=== PATIENT | female | born 1955 | race Caucasian/White ===

== ENCOUNTER → 2017-01-27 | Outpatient (REF) | payer BC, OTHER ==
[2017-01-27 11:42] LABS: BASO % 0.2 % (0.0-1.0); EOS # 0.1 K/mm3 (0.0-0.50); EOS % 1.2 % (0.0-3.0); LARGE UNSTAINED CELL # 0.1 K/mm3 (0.0-0.4); LARGE UNSTAINED CELL % 1.3 % (0.0-4.0); LYMPH # 1.5 K/mm3 (1.5-4.5); LYMPH % 19.8 % (24.0-44.0); MEAN CORPUSCULAR HGB CONC 33.4 g/dl (32.0-36.5); MONO # 0.4 K/mm3 (0.0-0.8); MONO % 5.5 % (0.0-5.0); NEUTROPHILS # 5.2 K/mm3 (1.8-7.7); PLATELET COUNT, AUTOMATED 240 k/mm3 (150-450); RED CELL DISTRIBUTION WIDTH 12.9 % (11.5-14.5); WHITE BLOOD COUNT 7.2 K/mm3 (4.0-10.0)
[2017-01-27 12:06] LABS: ALBUMIN 3.9 GM/DL (3.2-5.2); PERCENT SATURATION 25.2 % (13.2-37.4)
== END ==
LOC: M LABDRAWC 11:20
PROVIDERS: ATTEND Orthopaedic Surgery
DX: M25.561 Pain in right knee (principal); M25.562 Pain in left knee

== ENCOUNTER → 2017-02-20 | Outpatient (REF) | payer OTHER, BC ==
[2017-02-20 16:48] LABS: ALBUMIN 3.9 GM/DL (3.2-5.2); ALBUMIN/GLOBULIN RATIO 1.44 (1.00-1.93); ALKALINE PHOSPHATASE 97 U/L (45-117); ALT/SGPT 36 U/L (12-78); ANION GAP 7 MEQ/L (8-16); AST/SGOT 16 U/L (15-37); BILIRUBIN,TOTAL 0.6 MG/DL (0.2-1.0); BLOOD UREA NITROGEN 13 MG/DL (7-18); CALCIUM LEVEL 9.1 MG/DL (8.5-10.1); CARBON DIOXIDE LEVEL 27 MEQ/L (21-32); CHLORIDE LEVEL 108 MEQ/L (98-107); CREATININE FOR GFR 0.65 MG/DL (0.55-1.02); GLOMERULAR FILTRATION RATE > 60.0 (>51); GLUCOSE, FASTING 88 MG/DL (70-105); POTASSIUM SERUM 3.9 MEQ/L (3.5-5.1); SODIUM LEVEL 142 MEQ/L (136-145); TOTAL PROTEIN 6.6 GM/DL (6.4-8.2)
[2017-02-20 17:00] LABS: INR 0.91
[2017-02-20 19:10] LABS: BASO % 0.3 % (0.0-1.0); EOS # 0.1 K/mm3 (0.0-0.50); EOS % 1.6 % (0.0-3.0); LARGE UNSTAINED CELL # 0.1 K/mm3 (0.0-0.4); LARGE UNSTAINED CELL % 1.9 % (0.0-4.0); LYMPH # 1.7 K/mm3 (1.5-4.5); LYMPH % 30.7 % (24.0-44.0); MEAN CORPUSCULAR HEMOGLOBIN 30.2 pg (27.0-33.0); MEAN CORPUSCULAR HGB CONC 33.3 g/dl (32.0-36.5); MEAN CORPUSCULAR VOLUME 90.7 fl (80.0-96.0); MONO # 0.3 K/mm3 (0.0-0.8); MONO % 6.1 % (0.0-5.0); NEUTROPHILS # 3.1 K/mm3 (1.8-7.7); NEUTROPHILS % 59.4 % (36.0-66.0); PLATELET COUNT, AUTOMATED 238 k/mm3 (150-450); WHITE BLOOD COUNT 5.1 K/mm3 (4.0-10.0)
== END ==
LOC: M SFHCCLAY 12:48
PROVIDERS: ATTEND Family Medicine
DX: Z01.818 Encounter for other preprocedural examination (principal)

== ENCOUNTER → 2017-05-09 | Outpatient (REF) | payer OTHER, BC ==
[2017-05-09 19:30] LABS: BASO % 0.3 % (0.0-1.0); EOS # 0.1 K/mm3 (0.0-0.50); EOS % 1.7 % (0.0-3.0); LARGE UNSTAINED CELL # 0.1 K/mm3 (0.0-0.4); LARGE UNSTAINED CELL % 1.2 % (0.0-4.0); LYMPH # 1.4 K/mm3 (1.5-4.5); LYMPH % 23.6 % (24.0-44.0); MEAN CORPUSCULAR HEMOGLOBIN 29.9 pg (27.0-33.0); MEAN CORPUSCULAR HGB CONC 32.7 g/dl (32.0-36.5); MEAN CORPUSCULAR VOLUME 91.5 fl (80.0-96.0); MONO # 0.4 K/mm3 (0.0-0.8); MONO % 6.5 % (0.0-5.0); NEUTROPHILS # 3.8 K/mm3 (1.8-7.7); NEUTROPHILS % 66.7 % (36.0-66.0); PLATELET COUNT, AUTOMATED 274 k/mm3 (150-450); WHITE BLOOD COUNT 5.7 K/mm3 (4.0-10.0)
== END ==
LOC: M SFHCCLAY 10:36
PROVIDERS: ATTEND Family Medicine
DX: M25.561 Pain in right knee (principal)

== ENCOUNTER → 2018-01-23 | Outpatient (CLI) | payer OTHER, BC | LOC: M RAD 19:42 | DX: M25.531 Pain in right wrist (principal); W64.XXXA Exposure to other animate mechanical forces, initial encounter | CPT/HCPCS: 73110 ==

== ENCOUNTER → 2018-02-13 | Outpatient (CLI) | payer OTHER, BC | LOC: M RAD 16:05 | DX: H81.91 Unspecified disorder of vestibular function, right ear (principal) | CPT/HCPCS: 70551 ==

== ENCOUNTER → 2020-09-07 | Outpatient (CLI) | payer SELFPAY | LOC: M LABSMTC 14:18 | PROVIDERS: ATTEND Pediatrics | DX: Z20.828 Contact with and (suspected) exposure to other viral communicable diseases (principal) ==

== ENCOUNTER 2021-08-23 22:54 | Observation (INO) | payer BC, SELFPAY ==
[~2021-08-23] VITALS: Ht 170.2 cm; Wt 117.0 kg
[2021-08-23] MEDS ORDERED: LOSA50TA88 PO (22:59)
--- OUTSIDE RECORDS SUMMARY | 2021-08-23 22:59 | CCD ---
Author Author [facility] Organization [facility] Address Unknown Phone Unavailable Care Team Providers Care Contracts Specialist Name Role Phone Gege Garrido CHIEF INVESTMENT OFFICER Unavailable Unavailable Garrido Gege CHIEF INVESTMENT OFFICER Unavailable Unavailable Garrido Gege CHIEF INVESTMENT OFFICER Unavailable Unavailable Garrido, Gege CHIEF INVESTMENT OFFICER Unavailable Unavailable Garrido, Gege CHIEF INVESTMENT OFFICER Unavailable Unavailable Garrido, Gege CHIEF INVESTMENT OFFICER Unavailable Unavailable Garrido, Gege CHIEF INVESTMENT OFFICER Unavailable Unavailable Garrido, Gege CHIEF INVESTMENT OFFICER Unavailable Unavailable Garrido, Gege CHIEF INVESTMENT OFFICER Unavailable Unavailable Garrido, Gege CHIEF INVESTMENT OFFICER Unavailable Unavailable Garrido, Gege CHIEF INVESTMENT OFFICER Unavailable Unavailable Garrido, Gege CHIEF INVESTMENT OFFICER Unavailable Unavailable Garrido, Gege CHIEF INVESTMENT OFFICER Unavailable Unavailable KAREN, J KEY DO Unavailable Unavailable KAREN, J KEY DO Unavailable Unavailable KAREN, J KEY DO Unavailable Unavailable KAREN, J KEY DO Unavailable Unavailable KAREN, J KEY DO Unavailable Unavailable KAREN, J KEY DO Unavailable Unavailable KAREN, J KEY DO Unavailable Unavailable KAREN, J KEY DO Unavailable Unavailable KAREN, J KEY DO Unavailable Unavailable KAREN, J KEY DO Unavailable Unavailable KAREN, J KEY DO Unavailable Unavailable KAREN, J KEY DO Unavailable Unavailable KAREN, J KEY DO Unavailable Unavailable KAREN, J KEY DO Unavailable Unavailable KAREN, J KEY DO Unavailable Unavailable KAREN, J KEY DO Unavailable Unavailable KAREN, J KEY DO Unavailable Unavailable KAREN, J KEY DO Unavailable Unavailable KAREN, J KEY DO Unavailable Unavailable KRAEN, J KEY DO Unavailable Unavailable KAREN, J KEY DO Unavailable Unavailable KAREN, J KEY DO Unavailable Unavailable KAREN, J KEY DO Unavailable Unavailable KAREN, J KEY DO Unavailable Unavailable KAREN, J KEY DO Unavailable Unavailable KAREN, J KEY DO Unavailable Unavailable KAREN, J KEY DO Unavailable Unavailable Shelia Parrish MD Unavailable Unavailable Shelia Parrish MD Unavailable Unavailable Shelia Parrish MD Unavailable Unavailable Shelia Parrish MD Unavailable Unavailable Shelia Parrish MD Unavailable Unavailable Shelia Parrish MD Unavailable Unavailable Shelia Parrish MD Unavailable Unavailable Shelia Parrish MD Unavailable Unavailable Shelia Parrish MD Unavailable Unavailable Shelia Parrish MD Unavailable Unavailable Shelia Parrish MD Unavailable Unavailable Shelia Parrish MD Unavailable Unavailable Shelia Parrish MD Unavailable Unavailable Shelia Parrish MD Unavailable Unavailable Shelia Parrish MD Unavailable Unavailable Shelia Parrish MD Unavailable Unavailable Shelia Parrish MD Unavailable Unavailable Shelia Parrish MD Unavailable Unavailable Shelia Parrish MD Unavailable Unavailable Shelia Parrish MD Unavailable Unavailable Shelia Parrish MD Unavailable Unavailable Shelia Parrish MD Unavailable Unavailable Shelia Parrish MD Unavailable Unavailable Shelia Parrish MD Unavailable Unavailable Shelia Parrish MD Unavailable Unavailable Shelia Parrish MD Unavailable Unavailable Shelia Parrish MD Unavailable Unavailable Shelia Parrish MD Unavailable Unavailable Shelia Parrish MD Unavailable Unavailable Shelia Parrish MD Unavailable Unavailable Shelia Parrish MD Unavailable Unavailable Shelia Parrish MD Unavailable Unavailable Shelia Parrish MD Unavailable Unavailable Shelia Parrish MD Unavailable Unavailable Shelia Parrish MD Unavailable Unavailable Shelia Parrish MD Unavailable Unavailable Shelia Parrish MD Unavailable Unavailable Shelia Parrish MD Unavailable Unavailable Shelia Parrish MD Unavailable Unavailable Shelia Parrish MD Unavailable Unavailable Shelia Parrish MD Unavailable Unavailable Shelia Parrish MD Unavailable Unavailable Shelia Parrish MD Unavailable Unavailable Shelia Parrish MD Unavailable Unavailable Shelia Parrish MD Unavailable Unavailable Shelia Parrish MD Unavailable Unavailable Shelia Parrish MD Unavailable Unavailable Shelia Parrish MD Unavailable Unavailable Shelia Parrish MD Unavailable Unavailable Shelia Parrish MD Unavailable Unavailable Shelia Parrish MD Unavailable Unavailable Shelia Parrish MD Unavailable Unavailable Shelia Parrish MD Unavailable Unavailable Shelia Parrish MD Unavailable Unavailable Shelia Parrish MD Unavailable Unavailable Shelia Parrish MD Unavailable Unavailable Shelia Parrish MD Unavailable Unavailable Shelia Parrish MD Unavailable Unavailable SYMENOW, G CHRISTOPHER PA Unavailable Unavailable SYMENOW, G CHRISTOPHER PA Unavailable Unavailable SYMENOW, G CHRISTOPHER PA Unavailable Unavailable SYMENOW, G CHRISTOPHER PA Unavailable Unavailable SYMENOW, G CHRISTOPHER PA Unavailable Unavailable SYMENOW, G CHRISTOPHER PA Unavailable Unavailable SYMENOW, G CHRISTOPHER PA Unavailable Unavailable SYMENOW, G CHRISTOPHER PA Unavailable Unavailable SYMENOW, G CHRISTOPHER PA Unavailable Unavailable SYMENOW, G CHRISTOPHER PA Unavailable Unavailable SYMENOW, G CHRISTOPHER PA Unavailable Unavailable SYMENOW, G CHRISTOPHER PA Unavailable Unavailable SYMENOW, G CHRISTOPHER PA Unavailable Unavailable SYMENOW, G CHRISTOPHER PA Unavailable Unavailable SYMENOW, G CHRISTOPHER PA Unavailable Unavailable SYMENOW, G CHRISTOPHER PA Unavailable Unavailable Robert Koroma, Jared Cuevas MD, FACS Unavailable Unavailable Robert Koroma, Jared Cuevas MD, FACS Unavailable Unavailable Robert Koroma, Jared Cuevas MD, FACS Unavailable Unavailable Jared Mcallister MD, FACS Unavailable Unavailable Jared Mcallister MD, FACS Unavailable Unavailable Jared Mcallister MD, FACS Unavailable Unavailable Jared Mcallister MD, FACS Unavailable Unavailable Jared Mcallister MD, FACS Unavailable Unavailable Jared Mcallister MD, FACS Unavailable Unavailable Jared Mcallister MD, FACS Unavailable Unavailable Jared Mcallister MD, FACS Unavailable Unavailable Jared Mcallister MD, FACS Unavailable Unavailable Jared Mcallister MD, FACS Unavailable Unavailable Jared Mcallister MD, FACS Unavailable Unavailable Jared Mcallister MD, FACS Unavailable Unavailable Jared Mcallister MD, FACS Unavailable Unavailable Jared Mcallister MD, FACS Unavailable Unavailable Jones Koroma, Jared Cuevas MD, FACS Unavailable Unavailable Ojnes Koroma, Jared Cuevas MD, FACS Unavailable Unavailable Jones Koroma, Jared Cuevas MD, FACS Unavailable Unavailable Jones Koroma, Jared Cuevas MD, FACS Unavailable Unavailable Jones Koroma, Jared Cuevas MD, FACS Unavailable Unavailable Jones Koroma, Jared Cuevas MD, FACS Unavailable Unavailable Jones Koroma, Jared Cuevas MD, FACS Unavailable Unavailable Jones Koroma, Jared Cuevas MD, FACS Unavailable Unavailable Jones Koroma, Jared Cuevas MD, FACS Unavailable Unavailable Jones Koroma, Jared Cuevas MD, FACS Unavailable Unavailable Jones Koroma, Jared Cuevas MD, FACS Unavailable Unavailable Jones Koroma, Jared Cuevas MD, FACS Unavailable Unavailable Jones Koroma, Jared Cuevas MD, FACS Unavailable Unavailable Jones Koroma, Jared Cuevas MD, FACS Unavailable Unavailable Jones Koroma, Jared Cuevas MD, FACS Unavailable Unavailable Jones Koroma, Jared Cuevas MD, FACS Unavailable Unavailable Jones Koroma, Jared Cuevas MD, FACS Unavailable Unavailable Jones Koroma, Jared Cuevas MD, FACS Unavailable Unavailable Jones Koroma, Jared Cuevas MD, FACS Unavailable Unavailable Jones Koroma, Jared Cuevas MD, FACS Unavailable Unavailable Jones Koroma, Jared Cuevas MD, FACS Unavailable Unavailable Jones Koroma, Jared Cuevas MD, FACS Unavailable Unavailable Braydon, M Amparo PA-C Unavailable Unavailable Braydon, M Amparo PA-C Unavailable Unavailable Braydon, M Amparo PA-C Unavailable Unavailable Braydon, M Amparo PA-C Unavailable Unavailable Braydon, M Amparo PA-C Unavailable Unavailable Braydon, M Amparo PA-C Unavailable Unavailable Braydon, M Amparo PA-C Unavailable Unavailable Braydon, M Amparo PA-C Unavailable Unavailable Braydon, M Amparo PA-C Unavailable Unavailable Braydon, M Amparo PA-C Unavailable Unavailable Braydon, M Amparo PA-C Unavailable Unavailable Braydon, M Amparo PA-C Unavailable Unavailable Braydon, M Amparo PA-C Unavailable Unavailable Braydon, M Amparo PA-C Unavailable Unavailable Braydon, M Amparo PA-C Unavailable Unavailable Braydon, M Amparo PA-C Unavailable Unavailable Braydon, M Amparo PA-C Unavailable Unavailable Braydon, M Amparo PA-C Unavailable Unavailable Braydon, M Amparo PA-C Unavailable Unavailable Braydon, M Amparo PA-C Unavailable Unavailable Braydon, M Amparo PA-C Unavailable Unavailable Braydon, M Amparo PA-C Unavailable Unavailable Braydon, M Amparo PA-C Unavailable Unavailable Braydon, M Amparo PA-C Unavailable Unavailable Braydon, M Amparo PA-C Unavailable Unavailable Braydon, M Amparo PA-C Unavailable Unavailable Braydon, M Amparo PA-C Unavailable Unavailable Braydon, M Amparo PA-C Unavailable Unavailable Braydon, M Amparo PA-C Unavailable Unavailable Braydon, M Amparo PA-C Unavailable Unavailable Braydon, M Amparo PA-C Unavailable Unavailable Braydon, M Amparo PA-C Unavailable Unavailable Braydon, M Amparo PA-C Unavailable Unavailable Braydon, M Amparo PA-C Unavailable Unavailable Braydon, M Amparo PA-C Unavailable Unavailable Braydon, M Amparo PA-C Unavailable Unavailable Braydon, M Amparo PA-C Unavailable Unavailable Braydon, M Amparo PA-C Unavailable Unavailable ROA, ARACELIS Unavailable Unavailable ROA, ARACELIS Unavailable Unavailable ROA, ARACELIS Unavailable Unavailable ROA, ARACELIS Unavailable Unavailable ROA, ARACELIS Unavailable Unavailable ROA, ARACELIS Unavailable Unavailable DANYA, L TEAGAN PA Unavailable Unavailable DANYA, L TEAGAN PA Unavailable Unavailable DANYA, L TEAGAN PA Unavailable Unavailable DANYA, L TEAGAN PA Unavailable Unavailable DANYA, L TEAGAN PA Unavailable Unavailable DANYA, L TEAGAN PA Unavailable Unavailable DANYA, L TEAGAN PA Unavailable Unavailable DANYA, L TEAGAN PA Unavailable Unavailable DANYA, L TEAGAN PA Unavailable Unavailable DANYA, L TEAGAN PA Unavailable Unavailable DANYA, L TEAGAN PA Unavailable Unavailable DANYA, L TEAGAN PA Unavailable Unavailable DANYA, L TEAGAN PA Unavailable Unavailable DANYA, L TEAGAN PA Unavailable Unavailable DANYA, L TEAGAN PA Unavailable Unavailable DANYA, L TEAGAN PA Unavailable Unavailable DANYA, L TEAGAN PA Unavailable Unavailable DANYA, L TEAGAN PA Unavailable Unavailable DANYA, L TEAGAN PA Unavailable Unavailable DANYA, L TEAGAN PA Unavailable Unavailable DANYA, L TEAGAN PA Unavailable Unavailable DANYA, L TEAGAN PA Unavailable Unavailable DANYA, L TEAGAN PA Unavailable Unavailable Denisa VEGA MD Unavailable Unavailable Denisa VEGA MD Unavailable Unavailable Denisa VEGA MD Unavailable Unavailable Denisa VEGA MD Unavailable Unavailable Denisa VEGA MD Unavailable Unavailable Denisa VEGA MD Unavailable Unavailable Denisa EVGA MD Unavailable Unavailable Denisa VEGA MD Unavailable Unavailable Denisa VEGA MD Unavailable Unavailable Denisa VEGA MD Unavailable Unavailable Denisa VEGA MD Unavailable Unavailable Denisa VEGA MD Unavailable Unavailable Denisa VEGA MD Unavailable Unavailable SILVIADenisa MD Unavailable Unavailable SILVIADenisa MD Unavailable Unavailable SILVIA S DINH HANSON Unavailable Unavailable SILVIADenisa MD Unavailable Unavailable SILVIADenisa MD Unavailable Unavailable SILVIADenisa MD Unavailable Unavailable SILVIADenisa MD Unavailable Unavailable SILVIA S DINH HANSON Unavailable Unavailable SILVIADenisa MD Unavailable Unavailable SILVIA S DINH HANSON Unavailable Unavailable SILVIADenisa MD Unavailable Unavailable SILVIADenisa FARMER MD Unavailable Unavailable SILVIADenisa FARMER MD Unavailable Unavailable SILVIADenisa FARMER MD Unavailable Unavailable SILVIA S DINH HANSON Unavailable Unavailable SILVIADenisa FARMER MD Unavailable Unavailable SILVIADenisa FARMER MD Unavailable Unavailable SILVIADenisa FARMER MD Unavailable Unavailable SILVIADenisa FARMER MD Unavailable Unavailable SILVIADenisa FARMER MD Unavailable Unavailable SILVIADenisa FARMER MD Unavailable Unavailable SILVIADenisa FARMER MD Unavailable Unavailable SILVIADenisa FARMER MD Unavailable Unavailable SILVIADenisa FARMER MD Unavailable Unavailable SILVIADenisa FARMER MD Unavailable Unavailable SILVIADenisa FARMER MD Unavailable Unavailable SILVIADenisa FARMER MD Unavailable Unavailable SILVIADenisa FARMER MD Unavailable Unavailable SILVIADenisa FARMER MD Unavailable Unavailable SILVIADenisa FARMER MD Unavailable Unavailable SILVIADenisa FARMER MD Unavailable Unavailable SILVIADenisa FARMER MD Unavailable Unavailable SILVIADenisa FARMER MD Unavailable Unavailable SILVIADenisa FARMER MD Unavailable Unavailable SILVIADenisa FARMER MD Unavailable Unavailable SILVIADenisa FARMER MD Unavailable Unavailable SILVIADenisa FARMER MD Unavailable Unavailable SILVIADenisa FARMER MD Unavailable Unavailable SILVIADenisa FARMER MD Unavailable Unavailable SILVIADenisa FARMER MD Unavailable Unavailable SILVIADenisa FARMER MD Unavailable Unavailable SILVIA, S DINH HANSON Unavailable Unavailable SILIVA S DINH HANSON Unavailable Unavailable SILVIA, S DINH HANSON Unavailable Unavailable SILVIA S DINH HANSON Unavailable Unavailable SILVIA, S DINH HANSON Unavailable Unavailable SILVIA, S DINH HANSON Unavailable Unavailable SILVIADenisa FARMER MD Unavailable Unavailable SILVIADenisa FARMER MD Unavailable Unavailable SILVIA S DINH HANSON Unavailable Unavailable SILVIADenisa MD Unavailable Unavailable SILVIA S DINH HANSON Unavailable Unavailable LULI RAMIRES Unavailable Unavailable LULI RAMIRES Unavailable Unavailable KEYLA, LULI CYNTHIA PA Unavailable Unavailable KEYLA, LULI CYNTHIA PA Unavailable Unavailable KEYLA, LULI CYNTHIA PA Unavailable Unavailable KEYLA, LULI CYNTHIA PA Unavailable Unavailable KEYLA, LULI CYNTHIA PA Unavailable Unavailable KEYLA, LULI CYNTHIA PA Unavailable Unavailable KEYLA, LULI CYNTHIA PA Unavailable Unavailable KEYLA, LULI CYNTHIA PA Unavailable Unavailable KEYLA, LULI CYNTHIA PA Unavailable Unavailable KEYLA, LULI CYNTHIA PA Unavailable Unavailable KEYLA, LULI CYNTHIA PA Unavailable Unavailable KEYLA, LULI CYNTHIA PA Unavailable Unavailable KEYLA, LULI CYNTHIA PA Unavailable Unavailable KEYLA, LULI CYNTHIA PA Unavailable Unavailable KEYLA, LULI CYNTHIA PA Unavailable Unavailable KEYLA, LULI CYNTHIA PA Unavailable Unavailable KEYLA, LULI CYNTHIA PA Unavailable Unavailable KEYLA, LULI CYNTHIA PA Unavailable Unavailable KEYAL, LULI CYNTHIA PA Unavailable Unavailable KEYLA, LULI CYNTHIA PA Unavailable Unavailable Re-disclosure Warning The records that you are about to access may contain information from federally-assisted alcohol or drug abuse programs. If such information is present, then the following federally mandated warning applies: This information has been disclosed to you from records protected by federal confidentiality rules (42 CFR part 2). The federal rules prohibit you from making any further disclosure of this information unless further disclosure is expressly permitted by the written consent of the person to whom it pertains or as otherwise permitted by 42 CFR part 2. A general authorization for the release of medical or other information is NOT sufficient for this purpose. The Federal rules restrict any use of the information to criminally investigate or prosecute any alcohol or drug abuse patient.The records that you are about to access may contain highly sensitive health information, the redisclosure of which is protected by Article 27-F of the [facility] Public Health law. If you continue you may have access to information: Regarding HIV / AIDS; Provided by facilities licensed or operated by the [facility] Office of Mental Health; or Provided by the [facility] Office for People With Developmental Disabilities. If such information is present, then the following [facility] mandated warning applies: This information has been disclosed to you from confidential records which are protected by state law. State law prohibits you from making any further disclosure of this information without the specific written consent of the person to whom it pertains, or as otherwise permitted by law. Any unauthorized further disclosure in violation of state law may result in a fine or halfway sentence or both. A general authorization for the release of medical or other information is NOT sufficient authorization for further disc losure. Family History Family Member Name Family Member Gender Family Member Status Date o f Status Description Data Source(s) Unknown Unknown Problem [facility] ([facility], ) Encounters Encounter Providers Location Date Indications Data Source(s ) Outpatient [facility] 07/15/2021 12:00:00 AM EDT eCW1 ([facility]) <td ID="encounterTypeDescriptionID0">TRI AGE NON URGENT LEVEL 1</td><td>Mason Garcia MD, FACS</td><td>Mason Garcia MD [facility]</td><td>12/17/2020</td><td>8:00AM</td><td>8:27AM</td><td><content ID="encounterDiagnosisID0-0">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</content></td>Outpatient Attender: Mason Koroma MD, FACS Mason Garcia MD [facility] 12/17/2020 08:00:00 AM EDT - 12/17/2020 08:27:00 AM EDT Migraine Headache Ophthalmoplegic Withou t Intractable Migraine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 [place] (Mason Koroma MD [facility]) Migraine Headache Ophthalmoplegic Withou t Intractable Migraine Migraine Headache Ophthalmoplegic Withou t Intractable [facility] 10/01/2020 12: 00:00 AM EST eCW1 ([facility]) Outpatient Attender: Gege kilgore 09/03/2020 02:35:00 PM EST [facility] ([facility], [facility]) Outpatient Attender: Gege kilgore 08/09/2020 09:10:00 AM EST [facility] ([facility]) Outpatient [facility] 08/06/2020 12:00:00 AM EST eCW1 ([facility]) Outpatient [address] [place] [address] 07/15/2020 12:00:00 AM EDT eCW1 ([facility]) Outpatient [facility] 07/15/2020 12:00:00 AM EDT eCW1 ([facility]) Outpatient Attender: Amparo Bryson PA-C 06/25/2020 02:30 :00 PM EDT [facility] Outpatient [facility] 06/25/2020 12:00:00 AM EDT eCW1 ([facility]) Outpatient Attender: DINH VEGA MDReferrer: [facility] 04/23/2020 03:30:00 PM EDT - 04/23/2020 03:30:00 PM [facility] Emergency Attender: TEAGAN MCCARTNEY 11/2019 03:35:00 PM EDT - 01/19/2020 05:05:00 PM T [facility] Patient discharged. Outpatient Attender: Sridhar Parrish MD 11/01/2019 09:00:00 [facility] Outpatient Attender: KEY JONES DO 10/18/2019 11:00:00 [facility] Outpatient Attender: KEY JONES DO 10/17/2019 03:00:00 [facility] Outpatient Attender: KEY JONES DO 2019 03:00:00 PM [facility] - 10/15/2019 03:00:00 PM [facility] Emergency Attender: JOSIANE MCCARTNEY 10/29/2018 01:53:00 PM [facility] - 10/29/2018 03:06:00 PM [facility] Emergency Attender: CYNTHIA MCCARTNEY EMERGENCY ROOM-ER 11/24/2014 10:40:00 PM EDT - 11/25/2014 12:14:00 AM [facility] Immunizations Vaccine Date Status Description Data Source(s) COVID-19 VACCINE Pfizer 12/09/2020 12:00:00 AM EDT completed [facility] Vaccine Series Complete: YESThis Data wa s Submitted to [facility] Via [employer]. COVID-19 VACCINE Pfizer 11/18/2020 12:00:00 AM EST completed [facility] Vaccine Series Complete: NOThis Data was Submitted to [facility] Via [employer]. Medications Medication Brand Name Start Date Product Form Dose Route Admi nistrative Instructions Pharmacy Instructions Status Indications Reaction Description Data Source(s) 50 mg 06/01/2021 12:00:00 AM EDT tablet 30 TAKE ONE TABLET BY MOUTH AT BEDTIME TAKE ONE TABLET BY MOUTH AT BEDTIME SOLD: 07/01/2021 [facility] 50 mg 06/01/2021 12:00:00 AM EDT tablet 30 TAKE ONE TABLET BY MOUTH AT BEDTIME TAKE ONE TABLET BY MOUTH AT BEDTIME SOLD: 06/01/2021 [facility] 50 mg 06/01/2021 12:00:00 AM EDT tablet 30 TAKE ONE TABLET BY MOUTH AT BEDTIME TAKE ONE TABLET BY MOUTH AT BEDTIME SOLD: 08/13/2021 [facility] Clindamycin 300 MG Oral Capsule CLINDAMYCIN HCL 02/23/2021 12:00 :00 AM EDT capsule 2 TAKE TWO CAPSULES BY MOUTH 1 BELKIS R PRIOR TO DENTAL PROCEDURE TAKE TWO CAPSULES BY MOUTH 1 HOUR PRIOR TO DENTAL PROCEDURE SOLD: 05/26/2021 [facility] Clindamycin 300 MG Oral Capsule CLINDAMYCIN HCL 02/23/2021 12:00 :00 AM EDT capsule 2 TAKE TWO CAPSULES BY MOUTH 1 BELKIS R PRIOR TO DENTAL PROCEDURE TAKE TWO CAPSULES BY MOUTH 1 HOUR PRIOR TO DENTAL PROCEDURE SOLD: 02/23/2021 [facility] Clindamycin 300 MG Oral Capsule CLINDAMYCIN HCL 02/18/2021 12:00 :00 AM EDT capsule 2 TAKE 2 CAPSULES BY MOUTH 1 HOUR BEFORE PROCEDURE X 1 DOSE TAKE 2 CAPSULES BY MOUTH 1 HOUR BEFORE PROCEDURE X 1 DOSE SOLD: 02/22/2021 [facility] Clindamycin 300 MG Oral Capsule CLINDAMYCIN HCL 02/18/2021 12:00 :00 AM EDT capsule 2 TAKE 2 CAPSULES BY MOUTH 1 HOUR BEFORE PROCEDURE X 1 DOSE TAKE 2 CAPSULES BY MOUTH 1 HOUR BEFORE PROCEDURE X 1 DOSE SOLD: 02/18/2021 [facility] 300 mg 10/27/2020 12:00:00 AM EST capsule 2 TAKE TWO CAPSULES BY MOUTH 1 HOUR PRIOR TO DENTAL PROCEDURE TAKE TWO CAPSULES BY MOUTH 1 HOUR PRIOR TO DENTAL PROCEDURE SOLD: 10/27/2020 [facility] 300 mg 10/27/2020 12:00:00 AM EST capsule 15 TAKE ONE CAPSULE BY MOUTH THREE TIMES A DAY FOR 5 DAYS TAKE ONE CAPSULE BY MOUTH THREE TIMES A DAY FOR 5 DAYS SOLD: 10/27/2020 [facility] Prednisone 20 MG Oral Tablet Prednisone 09/03/2020 12:00:00 AM EST active [facility] ([facility]) Doxycycline Monohydrate 100 MG Oral Capsule Doxycycline [place] hydrate 08/09/2020 12:00:00 AM EST ORAL completed [facility] ([facility]) 60 ACTUAT Albuterol 0.09 MG/ACTUAT Metered Dose Inhaler [place] Sulfate HFA 08/09/2020 12:00:00 AM EST RESPIRATORY completed [facility] ([facility]) Prednisone 20 MG Oral Tablet Prednisone 08/09/2020 12:00:00 AM EST completed [facility] ([facility]) risedronate sodium 35 MG Oral Tablet Risedronate Sodium 12:00:00 AM EDT active [facility] ([facility]) 35 mg 06/26/2020 12:00:00 AM EDT tablet 4 TAKE 1 TABLET BY MOUTH AT LEAST 30 MINUTES BEFORE THE FIRST FOOD OR DRINK, OTHER THAN WATER, OF THE DAY ONCE WEEKLY TAKE 1 TABLET BY MOUTH AT LEAST 30 MINUT ES BEFORE THE FIRST FOOD OR DRINK, OTHER THAN WATER, OF THE DAY ONCE WEEKLY SOLD: 06/30/2020 [facility] Doxycycline Monohydrate 100 MG Oral Capsule Doxycycline [place] hydrate 100 MG 06/25/2020 12:00:00 AM EDT 1.0 {capsule} active Doxycycline Monohydrate 100 MG eCW1 ([facility]) Doxycycline Monohydrate 100 MG Oral Capsule Doxycycline [place] hydrate 100 MG 06/25/2020 12:00:00 AM EDT 1.0 {capsule} active Doxycycline Monohydrate 100 MG eCW1 ([facility]) Doxycycline Monohydrate 100 MG Oral Capsule Doxycycline [place] hydrate 100 MG 06/25/2020 12:00:00 AM EDT 1.0 {capsule} active Doxycycline Monohydrate 100 MG eCW1 ([facility]) Doxycycline Monohydrate 100 MG Oral Capsule Doxycycline [place] hydrate 100 MG 06/25/2020 12:00:00 AM EDT 1.0 {capsule} active Doxycycline Monohydrate 100 MG eCW1 ([facility]) 50 mg 05/11/2020 12:00:00 AM EDT tablet 90 TAKE ONE TABLET BY MOUTH AT BEDTIME TAKE ONE TABLET BY MOUTH AT BEDTIME SOLD: 08/19/2020 [facility] 50 mg 05/11/2020 12:00:00 AM EDT tablet 90 TAKE ONE TABLET BY MOUTH AT BEDTIME TAKE ONE TABLET BY MOUTH AT BEDTIME SOLD: 02/18/2021 [facility] 50 mg 05/11/2020 12:00:00 AM EDT tablet 90 TAKE ONE TABLET BY MOUTH AT BEDTIME TAKE ONE TABLET BY MOUTH AT BEDTIME SOLD: 11/21/2020 [facility] Insurance Providers Payer name Policy type / Coverage type Policy ID Covered libertarian ID Covered libertarian's relationship to clemons Policy Clemons Plan Information EXCELLUS BCBS [id number] Spo GHP [id number] BCBS OD [place] 210/710 [id number] HU2 [id number] BCBS of [facility] Other 0 [id number] Family D ependent Thom Brittany 0 BCBS of [facility] Other 0 [id number] Family D ependent Thom Brittany 0 Excell[employer] BCBS Medigap Part B [id number] Family Dependent [id number] EXCELLUS H [id number] Spouse [id number] POMCO U [id number] Self [id number] Blue Cross Blue Shield P [id number] SPOUSE [id number] POMCO U [id number] Self [id number] POMCO [id number] Karen [id number] [employer] Health Maintenance Organization (HMO) [id number] Self [id number] POMCO [id number] SP [id number] [employer] Maintenance Organization (HMO) [id number] Self [id number] POMCO [id number] Karen [id number] [employer] / UMR F [id number] SELF [id number] [employer] F [id number] SELF [id number] [employer] F [id number] SELF [id number] [employer] F [id number] SELF [id number] Blue Cross Blue Shield P [id number] SPOUSE [id number] BCBS OD [place] 210/710 [id number] HU2 [id number] UMR F [id number] SELF [id number] BCBS EXCELLUS [id number] SPO UGD [id number] BCBS EXCELLUS [id number] SPO GHP [id number] BCBS EXCELLUS [id number] SPO UGD [id number] BCBS EXCELLUS [id number] SPO UGD [id number] BCBS OD [place] 210/710 [id number] HU2 [id number] BCBS EXCELLUS [id number] SPO GHP [id number] [employer] PHCS Ppo Commercial [id number] Self [id number] POMCO [id number] SP [id number] BCBS [facility] [id number] Family Dependent G [id number] [employer] Commercial [id number] Self BCBS Excellus Ppo U/W Commercial [id number] Family Dependent BC/BS [place] Commercial [id number] Family Dependent BC/BS Of [place] Medigap Part [id number] Family Dep endent [place] Commercial [id number] Self BCBS OF [place] BC [id number] SPO [id number] BCBS EXCELLUS [id number] SPO UGD [id number] BCBS of [facility] Other 0 [id number] Self 0 BCBS of [facility] Other 0 [id number] Self [id number] BCBS EXCELLUS [id number] SPO GHP [id number] SELF PAY UNAVAILABLE S UNAVAILA BLE BCBS Excell[employer] U/W Commercial [id number] Family Dependent [id number] R O [id number] S [id number] EXCELLUS BCBS B [id number] S GHP [id number] SELF PAY ONLY [id number] SP [id number] R [facility] [id number] SP [id number] EXCELLUS BCBS PI PI [place]OM[place] PI PI [id number] BCBS EX[place]LLUS [id number] SPO [place]NER [id number] POMCO [id number] SP [id number] Problems, Conditions, and Diagnoses Code Display Name Description Problem Type Effective Dates Data Source(s) M85.80 Other specified disorders of bone density and structure, unspecified site OTH DISRD OF BONE DENSITY AND STRUCTURE, UNSPECIFI Diagnosis 06/25/2020 02:30:00 PM [facility] J01.00 Acute maxillary sinusitis, unspecified A CUTE MAXILLARY SINUSITIS, UNSPECIFIED Diagnosis 06/25/2020 02:30:00 PM [facility] [id number] Body mass index 30+ - obesity Body mass index 30+ - ob esity Problem 07/13/2020 12:00:00 AM EDT MEDENT ([facility]) Surgeries/Procedures Procedure Description Date Indications Data Source(s) Intermediate Eye Exam Established Patient Intermediate Eye Exam Established Patient 12/17/2020 12:00:00 AM EDT PRASHANTH (Willy Koroma MD [facility]) Surgical / procedural history : Hysterec alicia- 1992, Appendectomy- 2004, Basal Cell Removed, right side of face 01/2019 Surgical / procedural history : Hysterectomy- 1992, Appendectomy- 2005, Basal Cell Removed, right side of face 01/201912/17/2020 12:00:00 AM EDT PRASHANTH (Willy Koroma MD [facility]) Intermediate Eye Exam Established Patient Intermediate Eye Exam Established Patient 12/17/2020 12:00:00 AM EDT PRASHANTH (Willy Koroma MD [facility]) Results ID Date Data Source [id number] 09/07/2020 12:00:00 AM EST [facility] Name Value Range Interpretation Code Description Data Ariella rce(s) Supporting Document(s) SARS-CoV-2 (COVID-19) RNA [Presence] in Respiratory specimen by RACHEL with probe detection [facility] This lab was ordered by [facility] and reported by [facility]. ID Date Data Source [id number] 09/03/2020 12:00:00 AM EST [facility] Name Value Range Interpretation Code Description Data Ariella rce(s) Supporting Document(s) SARS coronavirus 2 Ag [facility] This lab was ordered by [facility] and reported by [facility]. Procedure Social History Code Duration Value Status Description Data Source(s ) Smoking 08/12/2021 03:09:41 PM EST Never smoked tobacco (findi ng) completed Never smoked tobacco (finding) PRASHANTH (Mason Koroma MD [facility]) Smoking 12/17/2020 08:30:09 AM EDT Never smoked tobacco (findi ng) completed Never smoked tobacco (finding) PRASHANTH (Mason Koroma MD [facility]) Smoking 09/03/2020 12:00:00 AM EST Patient has never smoked co mpleted Patient has never smoked MEDENT ([facility]) Smoking 06/25/2020 12:00:00 AM EDT Never Smoker completed Never S moker eCW1 ([facility]) Smoking 06/25/2020 12:00:00 AM EDT Never Smoker completed Never S moker eCW1 ([facility]) Smoking 06/25/2020 12:00:00 AM EDT Never Smoker completed Never S moker eCW1 ([facility]) Smoking 06/25/2020 12:00:00 AM EDT Never Smoker completed Never S moker eCW1 ([facility]) Vital Signs ID Date Data Source UNK Name Value Range Interpretation Code Description Data Source(s) Diastolic blood pressure 86 mm[Hg] 86 mm[Hg] MEDENT ([facility]) Heart rate 73 /min 73 /min MEDENT ([facility]) Respiratory rate 18 /min 18 /min MEDENT ( [facility], [facility]) Oxygen saturation in Arterial blood by Pulse oximetry 95 % 95 % [facility], [facility]) Body temperature 98.6 [degF] 98.6 [degF] [facility], [facility]) Body weight 220.00 [lb_av] 220.00 [lb_av] MEDEN T ([facility], [facility]) Body height 67 [in_i] 67 [in_i] MEDENT ([facility], [facility]) 5'7" Body mass index (BMI) [Ratio] 34.5 kg/m2 34.5 k g/m2 [facility], [facility]) Systolic blood pressure 120 mm[Hg] 120 mm[Hg] M [facility] ([facility], [facility]) Heart rate 83 /min 83 /min [facility], [facility]) Respiratory rate 18 /min 18 /min [facility] ( [facility], [facility]) Oxygen saturation in Arterial blood by Pulse oximetry 97 % 97 % [facility] ([facility], [facility]) Body temperature 98.6 [degF] 98.6 [degF] [facility], [facility]) Body weight 220.00 [lb_av] 220.00 [lb_av] MEDEN T ([facility], [facility]) Body height 67 [in_i] 67 [in_i] MEDENT ([facility]) 5'7" Body mass index (BMI) [Ratio] 34.5 kg/m2 34.5 k g/m2 [facility] ([facility], [facility]) Systolic blood pressure 126 mm[Hg] 126 mm[Hg] M [facility]ENT ([facility], [facility]) Diastolic blood pressure 82 mm[Hg] 82 mm[Hg] [facility], [facility]) Body weight 219.00 [lb_av] 219.00 [lb_av] MEDEN T ([facility]) Body height 67 [in_i] 67 [in_i] [facility] 5'7" Body mass index (BMI) [Ratio] 34.3 kg/m2 34.3 k g/m2 MEDENT ([facility]) Systolic blood pressure--sitting 126 mm[Hg] 126 mm[Hg] MEDENT ([facility]) medium cuff, Ra Diastolic blood pressure--sitting 76 mm[Hg] 76 mm[Hg] MEDENT ([facility]) medium cuff, Ra Systolic blood pressure--supine 135 mm[Hg] 135 mm[Hg] MEDENT ([facility]) medium cuff, Ra Diastolic blood pressure--supine 82 mm[Hg] 82 mm[Hg] MEDENT ([facility]) medium cuff, Ra Body height 67.5 [in_i] 67.5 [in_i] eCW1 ([facility]) Body weight 223.8 [lb_av] 223.8 [lb_av] eCW1 ([facility]) Body mass index (BMI) [Ratio] 34.53 kg/m2 34.53 kg/m2 eCW1 ([facility]) Body temperature 99 [degF] 99 [degF] eCW1 ([facility]) Heart rate 91 /min 91 /min eCW1 ([facility]) Respiratory rate 17 /min 17 /min eCW1 ([facility]) Oxygen saturation in Arterial blood by Pulse oximetry 95 % 95 % eCW1 ([facility]) Patient Treatment Plan of Care Planned Activity Planned Date Details Description Data Source (s) Doxycycline Monohydrate 100 MG Oral Capsule 06/25/2020 12:00:00 AM EDT eCW1 ([facility]) Doxycycline Monohydrate 100 MG Oral Capsule 06/25/2020 12:00:00 AM EDT eCW1 ([facility]) Doxycycline Monohydrate 100 MG Oral Capsule 06/25/2020 12:00:00 AM EDT eCW1 ([facility]) Doxycycline Monohydrate 100 MG Oral Capsule 06/25/2020 12:00:00 AM EDT eCW1 ([facility])
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
--- OUTSIDE RECORDS SUMMARY | 2021-08-23 22:59 | CCD ---
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 Active confirmed [id number] Problem Vitamin D deficiency E55.9 Active confirmed 84057296 Problem Essential hypertension I10 Active confirmed 58746460 Problem Hematuria, unspecified type R31.9 Active confirmed 16781768 Problem Abnormal CT scan, bladder R93.41 Active confirmed 084001760 Problem Kidney mass N28.89 Active confirmed 01102829 3 Problem Diverticulosis K57.90 Active confirmed 29681 1000 ALLERGIES Allergen (clinical drug ingredient) Drug/Non Drug Allergy do cumented on EMR Reaction Allergy Type Onset Date Status Novocain swelling Drug Allergy Active penicillin V Penicillin V Potassium([facility] Code:[address]-23) u nknown Drug Allergy Active ENCOUNTERS from 1955 to 2021-08-03 Encounter Location Date Provider Diagnosis [address] [address] Jun, Amparo Pineda IMMUNIZATIONS No Information SOCIAL HISTORY Tobacco Use: Social History Observation Description Date Details (start date - stop date) Never Smoker Sex Assigned At : Social History Observation Description Sex Assigned At Unknown Alcohol Screen Question Answer Notes Did you have a drink containing alcohol in the past year? No Points 0 Interpretation Negative Tobacco Use/Smoking Question Answer Notes Are you a never smoker REASON FOR REFERRAL No Information VITAL SIGNS No information MEDICATIONS Medication SIG (Take, Route, Frequency, Duration) Notes Start Da te End Date Status Magnesium 300 MG 1 capsule with a meal Orally Once a day for 30 day(s ) Active Vitamin D 50 MCG (1999 [place]) 1 tablet Orally Once a day for 30 day(s) Active Losartan Potassium 50 MG 1 tablet Orally Once a day for 30 day(s) Active Actonel 35 MG 1 tablet at least 30 minutes before the first food or drink, other than water, of the day Orally once a week for 90 day(s) Active Multivitamin Adult - as directed Orally Active Calcium 150 MG as directed Orally Ac tive Probiotic - as directed Orally Activ e Doxycycline Monohydrate 100 MG 1 capsule Orally twice a day for 10 day(s) Jun, Active Eye Vitamins - as directed Orally Ac tive PROCEDURES No Information RESULTS No Results REASON FOR VISIT Yearly Mammo MEDICAL (GENERAL) HISTORY Type Description Date Medical History HTN- pt does not know the name of her me dication Medical History Endometriosis Medical History Basil cell on face Medical History Obesity Surgical History Cyst excision on scalp Surgical History Appendectomy Surgical History Bilateral knee replacement Surgical History Hysterectomy at age 35-36 Hospitalization History No know Hospitalization history Goals Section No Information Health Concerns No Information MEDICAL EQUIPMENT No Information MENTAL STATUS No Information FUNCTIONAL STATUS No Information ASSESSMENTS No Information PLAN OF TREATMENT Medication Medication Name Sig Start Date Stop Date Actonel 35 MG 1 tablet at least 30 minutes before the first food or drink, other than water, of the day Orally once a week for 90 day(s) Doxycycline Monohydrate 100 MG 1 capsule Orally twice a day for 10 day(s) Jun, Insurance Providers Payer Name Payer Address Payer Phone Insured Name Patient Relati onship to Insured Coverage Start Date Coverage End Date BCBS OUT OF STATE [address] [address] [facility] [id number] Thom Soto
[2021-08-24 00:09] LABS: BASO % 0.4 % (0.0-1.0); EOS # 0.1 10^3/uL (0.0-0.5); EOS % 1.1 % (0.0-3.0); HEMATOCRIT 41.2 % (36.0-47.0); HEMOGLOBIN 13.2 g/dl (12.0-15.5); LYMPH # 1.8 10^3/uL (1.5-5.0); LYMPH % 23.1 % (24.0-44.0); MEAN CORPUSCULAR HEMOGLOBIN 29.3 pg (27.0-33.0); MEAN CORPUSCULAR VOLUME 91.4 fl (80.0-96.0); MONO # 0.6 10^3/uL (0.0-0.8); NEUTROPHILS # 5.2 10^3/uL (1.5-8.5); NEUTROPHILS % 66.4 % (36.0-66.0); PLATELET COUNT, AUTOMATED 271 10^3/uL (150-450); RED BLOOD COUNT 4.51 10^6/uL (4.00-5.40); WHITE BLOOD COUNT 7.9 10^3/uL (4.0-10.0)
[2021-08-24 00:13] LABS: CK-MB VALUE MASS 1.6 NG/ML (<3.6); MB/CK RELATIVE INDEX 1.57 (< OR =4)
[2021-08-24 00:19] LABS: ALBUMIN 3.3 GM/DL (3.2-5.2); ALT/SGPT 32 U/L (12-78); BILIRUBIN,DIRECT < 0.1 MG/DL (0.0-0.2); BILIRUBIN,TOTAL 0.3 MG/DL (0.2-1.0); BLOOD UREA NITROGEN 20 MG/DL (7-18); CARBON DIOXIDE LEVEL 29 MEQ/L (21-32); CHLORIDE LEVEL 111 MEQ/L (98-107); CREATININE FOR GFR 1.42 MG/DL (0.55-1.30); FREE T4 1.12 NG/DL (0.76-1.46); GLOMERULAR FILTRATION RATE 39.8 (>45); GLUCOSE, FASTING 108 MG/DL (70-100); LIPASE 95 U/L (73-393); POTASSIUM SERUM 3.9 MEQ/L (3.5-5.1); SODIUM LEVEL 146 MEQ/L (136-145); TOTAL PROTEIN 6.7 GM/DL (6.4-8.2)
--- NOTE | 2021-08-24 00:48 | REPVR ---
PROCEDURE INFORMATION: Exam: CT Head Without Contrast Exam date and time: 08/23/2021 11:51 PM Age: 65 years old Clinical indication: Other: Visual change; Additional info: Intermittent visual changes/ ho spont sah TECHNIQUE: Imaging protocol: Computed tomography of the head without contrast. Radiation optimization: All CT scans at this facility use at least one of these dose optimization techniques: automated exposure control; mA and/or kV adjustment per patient size (includes targeted exams where dose is matched to clinical indication); or iterative reconstruction. COMPARISON: MRI-Brain without Contrast 02/13/2018 5:19 PM FINDINGS: Brain: No intracranial mass, mass effect or midline shift. No acute intracranial hemorrhage. No CT evidence of acute cortical infarct. Ventricles, cisterns, and sulci are normal in size for age. Paranasal sinuses: Imaged paranasal sinuses are normally aerated. Mastoid air cells: Mastoid air cells and middle ear structures are normally aerated. Orbital cavity: Imaged orbits are unremarkable. Bones/joints: No calvarial fracture or destructive process. Soft tissues: No focal extracranial soft tissue swelling. IMPRESSION: No acute or concerning focal intracranial abnormality. Electronically signed by: Salvatore Figueroa On 08/24/2021 00:47:48 AM
--- OUTSIDE RECORDS SUMMARY | 2021-08-24 00:48 | CCD ---
Author Author [facility] Organization [facility] Address Unknown Phone Unavailable Care Team Providers Care Journeyman Press Operator Name Role Phone Garrido, Gege BANANA RIPENING ROOM SUPERVISOR Unavailable Unavailable Garrido, Gege BANANA RIPENING ROOM SUPERVISOR Unavailable Unavailable Garrido, Gege BANANA RIPENING ROOM SUPERVISOR Unavailable Unavailable Garrido, Gege BANANA RIPENING ROOM SUPERVISOR Unavailable Unavailable Garrido, Gege BANANA RIPENING ROOM SUPERVISOR Unavailable Unavailable Garrido, Gege BANANA RIPENING ROOM SUPERVISOR Unavailable Unavailable Garrido, Gege BANANA RIPENING ROOM SUPERVISOR Unavailable Unavailable Garrido, Gege BANANA RIPENING ROOM SUPERVISOR Unavailable Unavailable Garrido, Gege BANANA RIPENING ROOM SUPERVISOR Unavailable Unavailable Garrido, Gege BANANA RIPENING ROOM SUPERVISOR Unavailable Unavailable Garrido, Gege BANANA RIPENING ROOM SUPERVISOR Unavailable Unavailable Garrido, Gege BANANA RIPENING ROOM SUPERVISOR Unavailable Unavailable Garrido, Gege BANANA RIPENING ROOM SUPERVISOR Unavailable Unavailable KAREN, J KEY DO Unavailable Unavailable KAREN, J KEY DO Unavailable Unavailable KAREN, J KEY DO Unavailable Unavailable KAREN, J KEY DO Unavailable Unavailable KAREN, J KYE DO Unavailable Unavailable KAREN, J KEY DO [...] Koroma, Jared Cuevas MD, FACS Unavailable Unavailable Jonse Koroma, Jared Cuevas MD, FACS Unavailable Unavailable [...] Unavailable Braydon, M Amparo PA-C Unavailable Unavailable Barydon, M Amparo PA-C Unavailable Unavailable Braydon, M [...] Unavailable Denisa VEGA MD Unavailable Unavailable SILVIADenisa FARMER MD Unavailable Unavailable SILVIADenisa MD Unavailable Unavailable SILVIA S DINH HANSON Unavailable Unavailable SILVIADenisa MD Unavailable Unavailable SILVIADenisa MD Unavailable Unavailable SILVIADenisa MD Unavailable Unavailable SILVIADenisa MD Unavailable Unavailable SILVIA S DINH HANSON Unavailable Unavailable SILVIA S DINH HANSON Unavailable Unavailable SILVIA S DINH HANSON Unavailable Unavailable SILVIADenisa MD Unavailable Unavailable SILVIADenisa MD Unavailable Unavailable SILVIADenisa MD Unavailable Unavailable SILVIADenisa FARMER MD Unavailable Unavailable SILVIADenisa MD Unavailable Unavailable [...] Unavailable SILVIADenisa FARMER MD Unavailable Unavailable SILVIADenisa MD Unavailable Unavailable SILVIADenisa FARMER MD Unavailable Unavailable SILVIA, S DINH HANSON Unavailable Unavailable SILVIADenisa FARMER MD Unavailable Unavailable SILVIADenisa FARMER MD Unavailable Unavailable SILVIA S DINH HANSON Unavailable Unavailable SILVIA S DINH HANSON Unavailable Unavailable SILVIA S DINH HANSON Unavailable Unavailable SILVIA S DINH HANSON Unavailable Unavailable SILVIA S DINH HANSON Unavailable Unavailable SILVIA S DINH HANSON Unavailable Unavailable SILVIADenisa MD Unavailable Unavailable SILVIA S DINH HANSON Unavailable Unavailable SILVIA S DINH HANSON Unavailable Unavailable SILVIA S DINH MD Unavailable Unavailable SILVIA S DINH HANSON [...] is protected by Article 27-F of the [facility] Public Health law. If you continue you may have access to information: Regarding HIV / AIDS; Provided by facilities licensed or operated by the [facility] Office of Mental Health; or Provided by the [facility] Office for People With Developmental Disabilities. If such information is present, then the following [facility] mandated warning applies: This information has been [...] law may result in a fine or custodial sentence or both. A general authorization for the release of medical or other information is NOT sufficient authorization for further disc losure. Family History Family Member Name Family Member Gender Family Member Status Date o f Status Description Data Source(s) Unknown Unknown Problem MEDENT ([facility], ) Encounters Encounter Providers Location Date Indications Data Source(s ) Outpatient [facility] 07/15/2021 12:00:00 AM EDT eCW1 ([facility]) <td ID="encounterTypeDescriptionID0">TRI AGE NON URGENT LEVEL 1</td><td>Mason Garcia MD, FACS</td><td>Mason Garcia MD [facility]</td><td>12/17/2020</td><td>8:00AM</td><td>8:27AM</td><td><content ID="encounterDiagnosisID0-0">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</content></td>Outpatient Attender: Mason Koroma MD, FACS Mason Garcia MD [facility] 12/17/2020 08:00:00 AM EDT - 12/17/2020 08:27:00 AM EDT Migraine Headache Ophthalmoplegic Withou t Intractable Migraine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 [place] (Mason Koroma MD [facility]) Migraine Headache Ophthalmoplegic Withou t Intractable Migraine Migraine Headache Ophthalmoplegic Withou t Intractable Migraine [facility] 10/01/2020 12: 00:00 AM EST eCW1 ([facility]) Outpatient Attender: Gege kilgore 09/03/2020 02:35:00 PM EST MEDENT ([facility], [facility]) Outpatient Attender: Gege kilgore 08/09/2020 09:10:00 AM EST MEDENT ([facility], [facility]) Outpatient [facility] 08/06/2020 12:00:00 AM EST eCW1 ([facility]) Outpatient 3 [facility] [address] [id number] 07/15/2020 12:00:00 AM EDT eCW1 ([facility]) Outpatient [facility] 07/15/2020 12:00:00 AM EDT eCW1 ([facility]) Outpatient Attender: Amparo Bryson PA-C 06/25/2020 02:30 :00 PM EDT [facility] Outpatient [facility] 06/25/2020 12:00:00 AM EDT eCW1 ([facility]) Outpatient Attender: DINH VEGA MDReferrer: [facility] 04/23/2020 03:30:00 PM EDT - [facility]/23[facility] TEAGAN MCCARTNEY 11/2019 03:35:00 PM EDT - 01/19/2020 05:05:00 PM EDT [facility] Patient discharged. Outpatient Attender: Sridhar Parrish MD 11/01/2019 09:00:00 [facility] Outpatient Attender: KEY JONES DO 10/18/2019 11:00:00 [facility] Outpatient Attender: KEY JONES DO 10/17/2019 03:00:00 P [facility] Outpatient Attender: KEY JONES DO 2019 03:00:00 PM [facility] - 10/15/2019 03:00:00 PM [facility] Emergency Attender: JOSIANE MCCARTNEY 10/29/2018 01:53:00 PM [facility] - 10/29/2018 03:06:00 PM [facility] Emergency Attender: CYNTHIA MCCARTNEY EMERGENCY ROOM-ER 11/24/2014 10:40:00 PM EDT - 11/25/2014 12:14:00 AM [facility] Immunizations Vaccine Date Status Description Data Source(s) COVID-19 VACCINE Pfizer 12/09/2020 12:00:00 AM EDT completed [facility] Vaccine Series Complete: YESThis Data wa s Submitted to [facility] Via [employer] ([employer]). COVID-19 VACCINE Pfizer 11/18/2020 12:00:00 AM EST completed [facility] Vaccine Series Complete: NOThis Data was Submitted to [facility] Via [facility]. Medications Medication Brand Name Start Date Product [...] A DAY FOR 5 DAYS SOLD: 10/27/2020 [facility] Prednisone 20 MG Oral Tablet Prednisone 09/03/2020 12:00:00 AM EST active MEDENT ([facility]) Doxycycline Monohydrate 100 MG Oral Capsule Doxycycline [place] hydrate 08/09/2020 12:00:00 AM EST ORAL completed MEDENT ([facility]) 60 ACTUAT Albuterol 0.09 MG/ACTUAT Metered Dose Inhaler Albu terol Sulfate HFA 08/09/2020 12:00:00 AM EST RESPIRATORY completed MEDENT ([facility]) Prednisone 20 MG Oral Tablet Prednisone 08/09/2020 12:00:00 AM EST completed MEDENT ([facility]) risedronate sodium 35 MG Oral Tablet Risedronate Sodium 12:00:00 AM EDT active MEDENT ([facility]) 35 mg 06/26/2020 12:00:00 AM EDT tablet 4 TAKE 1 TABLET BY MOUTH AT LEAST 30 MINUTES BEFORE THE FIRST FOOD OR DRINK, OTHER THAN WATER, OF THE DAY ONCE WEEKLY TAKE 1 TABLET BY MOUTH AT LEAST 30 MINUT ES BEFORE THE FIRST FOOD OR DRINK, OTHER THAN WATER, OF THE DAY ONCE WEEKLY SOLD: 06/30/2020 [facility] Doxycycline Monohydrate 100 MG Oral Capsule Doxycycline [place] hydrate 100 MG 06/25/2020 12:00:00 AM EDT 1.0 {capsule} active Doxycycline Monohydrate 100 MG [facility]CW1 ([facility]) Doxycycline Monohydrate 100 MG Oral Capsule Doxycycline [place] hydrate 100 MG 06/25/2020 12:00:00 AM EDT 1.0 {capsule} active Doxycycline Monohydrate 100 MG [facility] Doxycycline Monohydrate 100 MG Oral Capsule Doxycycline [place] hydrate 100 MG 06/25/2020 12:00:00 AM EDT 1.0 {capsule} active Doxycycline Monohydrate 100 MG eCW1 ([facility]) Doxycycline Monohydrate 100 MG Oral Capsule Doxycycline [place] hydrate 100 MG 06/25/2020 12:00:00 AM EDT 1.0 {capsule} active Doxycycline Monohydrate 100 MG eCW1 ([facility]) 50 mg 05/11/2020 12:00:00 AM EDT tablet [...] type / Coverage type Policy ID Covered alliance party ID Covered alliance party's relationship to clemons Policy Clemons Plan Information EXCELLUS BCBS [id number] Spo GHP [id number] BCBS OD [place] 210/710 [id number] HU2 [id number] BCBS of [facility] Other 0 [id number] Family D ependent Thom Brittany 0 BCBS of [facility] Other 0 [id number] Family D ependent Thom Brittany 0 Excellus BCBS Medigap Part B [id number] Family Dependent [id number] EXCELLUS H [id number] Spouse [id number] POMCO U [id number] Self [id number] Blue Cross Blue Shield P [id number] SPOUSE [id number] POMCO U [id number] Self [id number] POMCO [id number] Karen [id number] [employer] Health Maintenance Organization (O) [id number] Self [id number] POMCO [id number] SP [id number] [employer] (HMO) [id number] Self [id number] POMCO [id number] Karen [id number] [employer] F [id number] SELF [id number] [employer] / UMR F [id number] SELF [id number] [employer] F [id number] SELF [id number] Blue Cross Blue Shield P [id number] SPOUSE [id number] [place] F [id number] SELF [id number] BCBS OD [place] 210/710 [id number] HU2 [id number] UMR F [id number] SELF [id number] BCBS EXCELLUS [id number] SPO UGD [id number] BCBS EXCELLUS [id number] SPO GHP [id number] BCBS EXCELLUS [id number] SPO UGD [id number] BCBS EXCELLUS [id number] SPO UGD [id number] BCBS OD [place] 210/710 [id number] HU2 [id number] [employer] PHCS Ppo Commercial [id number] Self [id number] POMCO [id number] SP [id number] BCBS Excellus Ppo U/W [facility] Part B [id number] Family Dependent G [id number] [employer] Commercial [id number] Self BCBS Excellus Ppo U/W Commercial [id number] Family Dependent BC/BS [place] Commercial [id number] Family Dependent BC/BS Of [place] Part B [id number] Family Dep endent [employer] Commercial [id number] Self BCBS EXCELLUS [id number] SPO UGD [id number] BCBS OF [place] BC [id number] SPO [id number] BCBS of [facility] Other 0 [id number] Self 0 BCBS of [facility] Other 0 [id number] Self 0 SELF PAY ONLY [id number] SP [id number] [facility] [id number] BCBS EXCELLUS [id number] SPO GHP [id number] SELF PAY UNAVAILABLE S UNAVAILA BLE BCBS Excellus U/W Commercial [id number] Family Dependent [id number] R [facility] [id number] SP [id number] UMR O [id number] S [id number] EXCELLUS BCBS B [id number] S [id number] [id number] BCBS OD [place] 210/710 [id number] SP [id number] BCBS EXCELLUS [id number] SPO GHP [id number] EXCELLUS BCBS PI PI [place]OM[place] PI PI [id number] BCBS EXCELLUS [id number] SPO GHP [id number] POMCO [id number] SP [id number] Problems, Conditions, and Diagnoses Code Display Name Description Problem Type Effective Dates Data Source(s) M85.80 Other specified disorders of bone density and structure, unspecified site OTH DISRD OF BONE DENSITY AND STRUCTURE, UNSPECIFI Diagnosis 06/25/2020 02:30:00 PM [facility] J01.00 Acute maxillary sinusitis, unspecified A CUTE MAXILLARY SINUSITIS, UNSPECIFIED Diagnosis 06/25/2020 02:30:00 PM [facility] [id number] Body mass index 30+ - obesity Body mass index 30+ - ob esity Problem 07/13/2020 12:00:00 AM EDT MEDROLA ([facility]) Surgeries/Procedures Procedure Description Date Indications Data Source(s) Intermediate Eye Exam Established Patient Intermediate Eye Exam Established Patient 12/17/2020 12:00:00 AM EDT PR[facility]AN[facility] (Willy Koroma MD [facility]) Surgical / procedural history : Hysterec alicia- 1992, Appendectomy- 2004, Basal Cell Removed, right side of face 01/2019 Surgical / procedural history : Hysterectomy- 1992, Appendectomy- 2004, Basal Cell Removed, right side of face 01/201912/17/2020 12:00:00 AM EDT PRASHANTH (Willy Koroma MD [facility]) Intermediate Eye Exam Established Patient Intermediate Eye Exam Established Patient 12/17/2020 12:00:00 AM EDT PRASHANTH (Willy Koroma MD [facility]) Results ID Date Data Source [id number] 09/07/2020 12:00:00 AM EST [facility] Name Value Range Interpretation Code Description Data Ariella rce(s) Supporting Document(s) SARS-CoV-2 (COVID-19) RNA [Presence] in Respiratory specimen by RACHEL with probe detection [facility] This lab was ordered by [facility] and reported by [employer]. ID Date Data Source [id number] 09/03/2020 12:00:00 AM EST [facility] Name Value Range Interpretation Code Description Data Ariella rce(s) Supporting Document(s) SARS coronavirus 2 Ag [facility] This lab was ordered by [facility] and reported by [facility]. Procedure Social History Code Duration Value Status Description Data Source(s ) Smoking 08/12/2021 03:09:41 PM EST Never smoked tobacco (findi ng) completed Never smoked tobacco (finding) PRASHANTH (Mason Koroma MD [facility]) Smoking 12/17/2020 08:30:09 AM EDT Never smoked tobacco (findi ng) completed Never smoked tobacco (finding) PRASHANTH (Mason Koroma MD [facility]) Smoking 09/03/2020 12:00:00 AM EST Patient has never smoked co mpleted Patient has never smoked MEDENT ([facility]) Smoking 06/25/2020 12:00:00 AM EDT Never Smoker completed Never S moker eCW1 ([facility]) Smoking 06/25/2020 12:00:00 AM EDT Never Smoker completed Never S moker eCW1 ([facility]) Smoking 06/25/2020 12:00:00 AM EDT Never Smoker completed Never S moker eCW1 ([facility]) Smoking 06/25/2020 12:00:00 AM EDT Never Smoker completed Never S moker eCW1 ([facility]) Vital Signs ID Date Data Source UNK Name Value Range Interpretation Code Description Data Source(s) Systolic blood pressure 120 mm[Hg] 120 mm[Hg] M EDENT ([facility]) Heart rate 73 /min 73 /min MEDENT ([facility], [facility]) Respiratory rate 18 /min 18 /min MEDENT ( [facility], [facility]) Oxygen saturation in Arterial blood by Pulse oximetry 95 % 95 % MEDENT ([facility], [facility]) Body temperature 98.6 [degF] 98.6 [degF] MEDENT ([facility], [facility]) Body weight 220.00 [lb_av] 220.00 [lb_av] MEDEN T ([facility], [facility]) Body height 67 [in_i] 67 [in_i] MEDENT ([facility], [facility]) 5'7" Body mass index (BMI) [Ratio] 34.5 kg/m2 34.5 k g/m2 MEDENT ([facility], [facility]) Diastolic blood pressure 86 mm[Hg] 86 mm[Hg] MEDENT ([facility], [facility]) Systolic blood pressure 126 mm[Hg] 126 mm[Hg] EDENT ([facility], [facility]) Diastolic blood pressure 82 mm[Hg] 82 mm[Hg] MEDENT ([facility], [facility]) Heart rate 83 /min 83 /min MEDENT ([facility], [facility]) Respiratory rate 18 /min 18 /min MEDENT ( [facility], [facility]) Oxygen saturation in Arterial blood by Pulse oximetry 97 % 97 % MEDENT ([facility], [facility]) Body temperature 98.6 [degF] 98.6 [degF] MEDENT ([facility], [facility]) Body weight 220.00 [lb_av] 220.00 [lb_av] MEDEN T ([facility], [facility]) Body height 67 [in_i] 67 [in_i] MEDENT ([facility], [facility]) 5'7" Body mass index (BMI) [Ratio] 34.5 kg/m2 34.5 k g/m2 MEDENT ([facility], [facility]) Body weight 219.00 [lb_av] 219.00 [lb_av] MEDEN T ([facility]) Body height 67 [in_i] 67 [in_i] MEDENT ([facility]) 5'7" Body mass index (BMI) [Ratio] 34.3 kg/m2 34.3 k g/m2 MEDENT ([facility]) Systolic blood pressure--sitting 126 mm[Hg] 126 mm[Hg] MEDENT ([facility]) medium cuff, Ra Diastolic blood pressure--sitting 76 mm[Hg] 76 mm[Hg] MEDENT ([facility]) medium cuff, Ra Systolic blood pressure--supine 135 mm[Hg] 135 mm[Hg] MEDENT ([facility]) medium cuff, Ra Diastolic blood pressure--supine 82 mm[Hg] 82 mm[Hg] MEDENT ([facility]) medium cuff, Ra Body height 67.5 [in_i] 67.5 [in_i] eCW1 ([facility]) Body weight 223.8 [lb_av] 223.8 [lb_av] eCW1 ([facility]) Body mass index (BMI) [Ratio] 34.53 kg/m2 34.53 kg/m2 eCW1 ([facility]) Body temperature 99 [degF] 99 [degF] eCW1 ([facility]) Heart rate 91 /min 91 /min eCW1 ([facility]) Respiratory rate 17 /min 17 /min eCW1 ([facility]) Oxygen saturation in Arterial blood by Pulse oximetry 95 % 95 % eCW1 ([facility]) Patient Treatment Plan of Care Planned Activity Planned Date Details Description Data Source (s) Doxycycline Monohydrate 100 MG Oral Capsule 06/25/2020 12:00:00 AM EDT eCW1 ([facility]) Doxycycline Monohydrate 100 MG Oral Capsule 06/25/2020 12:00:00 AM EDT eCW1 ([facility]) Doxycycline Monohydrate 100 MG Oral Capsule 06/25/2020 12:00:00 AM EDT eCW1 ([facility]) Doxycycline Monohydrate 100 MG Oral Capsule 06/25/2020 12:00:00 AM EDT eCW1 ([facility])
[2021-08-24] MEDS ORDERED: NS 1,000 ML IV ONE (01:25)
[2021-08-24] MEDS ORDERED: ACETAMINOPHEN TAB 650MG DOSE (2X325MG) PO PRN (02:15)
[2021-08-24] MEDS ORDERED: MOM 30ML SUSPENSION UDC PO PRN (02:15)
--- NOTE | 2021-08-24 02:22 | HPEPDOC ---
[facility] Medical History & Physical Date of Admission Aug 24, 2021 Date of Service: Aug 24, 2021 History and Physical CHIEF COMPLAINT: Generalized malaise HISTORY OF PRESENT ILLNESS: 65-year-old female presents due to a 2 day history of generalized malaise who on review of systems also reported having chest pain. Patient reports feeling somewhat weak and unwell for the past several days reports labile blood pressure on her home but pressure monitor reading both low and high measurements. She been noticing left-sided chest pain on the left side of her sternum that is reproducible on palpation and associated with lifting of her grandkids. Rest relieves the pain and lifting weights aggravates it. She feels she might be dehydrated she hasn't been drinking as much fluids as usual. She denies any diarrhea. She reports her acid reflux symptoms have been worse lately. Her symptoms are very vague generally she only identifies problems when probed. In the emergency department workup reveals patient has an CARLINE and initially he elevated blood pressure 179/99. Blood pressure has improved to 151/78. 1 L. Normal saline was ordered. Head CT was negative for acute bleed. PAST MEDICAL/SURGICAL HISTORY: Hypertension GERD Subarachnoid hemorrhage around 8 years ago Bilateral knee replacement Appendectomy Hysterectomy SOCIAL HISTORY: Denies alcohol use Denies tobacco use Denies illicit drug use FAMILY HISTORY: Reviewed and none contributory to this admission ALLERGIES: Please see below. REVIEW OF SYSTEMS: 10 point review of systems complete all negative otherwise stated in HPI HOME MEDICATIONS: Please see below. PHYSICAL EXAMINATION: Constitutional: Awake and alert, in no apparent distress ENT: Sclera are clear. Mucosa is moist. Respiratory: Lungs CTA bilaterally. No respiratory distress. No use of accessory muscles. Cardiovascular: Regular rate and rhythm no obvious murmurs. Chest pain is re producible on the left chest wall on palpation at the costochondral area. Gastrointestinal: Abdomen is soft, non distended, non tender, BS present. Musculoskeletal: Dependent nonpitting lower extremity edema. RUE 5/5, LUE 5/5, BLE 5/5 Neurologic: No focal neurological deficit. Mental Status: A&O x3, normal affect Skin: No visible rashes LABORATORY DATA: See below. IMAGING: See chart MICROBIOLOGY: Please see below. ASSESSMENT/PLAN 65-year-old female presents with vague complaints including reproducible chest pain found to have acute kidney injury and significantly elevated blood pressure admitted for observation for further medical management. # CARLINE: Cr 1.42. Likely prerenal secondary to dehydration as she reports decreased fluid intake could also be secondary to either significantly elevated blood pressure as seen on arrival here are very low blood pressures as reported by patient at home. Admitted for observation on telemetry. Obtain orthostatics BP. Fu FeNa. Trial of IVFs NS. Trend BMP. Avoid nephrotoxins. # Chest pain: Initial high sensitivity troponin negative ACS ruled out. noncardiac chest pain also from history pain is reproducible likely MSK. EKG reviewed. # Hypertensive urgency vs emergency: Unclear for elevated blood pressure contributed to her kidney injury at this time. Blood pressure has improved now. Continue home medications for now. Frequent blood pressure checks. IV hydralazine if needed to maintain SBP less than 160. # DVT prophylaxis: Heparin A Yousef Hospitalist Vital Signs Vital Signs Date Time Temp Pulse Resp B/P (MAP) Pulse Ox O2 Delivery O2 Flow Rate FiO2 08/24/21 00:15 64 16 151/78 (102) 94 Room Air 08/23/21 22:55 98.1 Laboratory Data Labs 24H Laboratory Tests 2 08/23/21 23:35: Immature Granulocyte % (Auto) 1.0, Neutrophils (%) (Auto) 66.4H, Lymphocytes (%) (Auto) 23.1L, Monocytes (%) (Auto) 8.0, Eosinophils (%) (Auto) 1.1, Basophils (%) (Auto) 0.4, Neutrophils # (Auto) 5.2, Lymphocytes # (Auto) 1.8, Monocytes # (Auto) 0.6, Eosinophils # (Auto) 0.1, Basophils # (Auto) 0.0, Nucleated Red Blood Cells % (auto) 0.0, Anion Gap 6L, Glomerular Filtration Rate 39.8L, Calcium Level 9.0, Total Bilirubin 0.3, Direct Bilirubin < 0.1, Aspartate Amino Transf (AST/SGOT) 14, Alanine Aminotransferase (ALT/SGPT) 32, Alkaline Phosphatase 115, Total Creatine Kinase 102, Creatine Kinase MB 1.6, Creatine Kinase MB Relative Index 1.57, Troponin I High Sensitivity 8.0, Total Protein 6.7, Albumin 3.3, Albumin/Globulin Ratio 1.0L, Lipase 95, Thyroid Stimulating Hormone (TSH) 2.250, Free Thyroxine 1.12 CBC/BMP Laboratory Tests 08/23/21 23:35 Home Medications Scheduled Losartan Potassium (Losartan Potassium) 50 Mg Tablet, 50 MG PO DAILY Allergies Coded Allergies: Penicillins (Verified Allergy, Unknown, 08/24/21) procaine (Verified Allergy, Unknown, 08/24/21) MARK HOFFMAN MD Aug 24, 2021 02:22
--- OUTSIDE RECORDS SUMMARY | 2021-08-24 02:31 | CCD ---
Author Author [facility] Organization [facility] Address Unknown Phone Unavailable Care Team Providers Care Finishing Frame Runner Name Role Phone Garrido, Gege SPECIAL EVENTS MANAGER Unavailable Unavailable Garrido, Gege SPECIAL EVENTS MANAGER Unavailable Unavailable Garrido, Gege SPECIAL EVENTS MANAGER Unavailable Unavailable Garrido, Gege SPECIAL EVENTS MANAGER Unavailable Unavailable Garrido, Gege SPECIAL EVENTS MANAGER Unavailable Unavailable Garrido, Gege SPECIAL EVENTS MANAGER Unavailable Unavailable Garrido, Gege SPECIAL EVENTS MANAGER Unavailable Unavailable Garrido, Gege SPECIAL EVENTS MANAGER Unavailable Unavailable Garrido, Gege SPECIAL EVENTS MANAGER Unavailable Unavailable Garrido, Gege SPECIAL EVENTS MANAGER Unavailable Unavailable Garrido, Gege SPECIAL EVENTS MANAGER Unavailable Unavailable Garrido, Gege SPECIAL EVENTS MANAGER Unavailable Unavailable Garrido, Gege SPECIAL EVENTS MANAGER Unavailable Unavailable KAREN, J KEY DO Unavailable [...] MD, FACS Unavailable Unavailable Jones Koroma, Jared Cueavs MD, FACS Unavailable Unavailable Jones Koroma, Jared [...] is protected by Article 27-F of the [facility] Public Health law. If you continue you may have access to information: Regarding HIV / AIDS; Provided by facilities licensed or operated by the [facility] Office of Mental Health; or Provided by the [facility] Office for People With Developmental Disabilities. If such information is present, then the following [facility] mandated warning applies: This information has been [...] Description Data Source(s) Unknown Unknown Problem MEDENT (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</content></td> Attender: Mason Koroma MD, FACS Mason Garcia MD [facility] 12/17/2020 08:00:00 AM EDT - 12/17/2020 08:27:00 AM ED T 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 PRASHANTH (Mason Koroma MD [facility]) Migraine Headache Ophthalmoplegic Withou t Intractable Migraine Migraine Headache Ophthalmoplegic Withou t Intractable [facility]raine [facility] 10/01/2020 12: 00:00 AM EST eCW1 ([facility]) Outpatient Attender: Gege kilgore 09/03/2020 02:35:00 PM EST MEDENT ([facility], [facility]) Outpatient Attender: Gege kilgore 08/09/2020 09:10:00 AM EST MEDENT ([facility], [facility]) Outpatient [facility] 08/06/2020 12:00:00 AM EST eCW1 ([facility]) Outpatient [address] [facility] [address] [place] [address] 07/15/2020 12:00:00 AM EDT eCW1 ([facility]) Outpatient [facility] 07/15/2020 12:00:00 AM EDT eCW1 ([facility]) Outpatient Attender: Amparo Bryson PA-C 06/25/2020 02:30 :00 PM EDT [facility] Outpatient [facility] 06/25/2020 12:00:00 AM EDT eCW1 ([facility]) Outpatient Attender: DINH VEGA MDReferrer: [facility] 04/23/2020 03:30:00 PM EDT - 04/23/2020 03:30:00 PM [facility] Emergency Attender: TEAGAN MCCARTNEY 11/2019 03:35:00 PM EDT - 01/19/2020 05:05:00 PM T [facility] Patient discharged. Outpatient Attender: Sridhar Parrish MD 11/01/2019 09:00:00 [facility] Outpatient Attender: KEY JONES DO 10/18/2019 11:00:00 [facility] Outpatient Attender: KEY JONES DO 10/17/2019 03:00:00 [facility] Attender: KEY JONES DO 2019 03:00:00 PM [facility] - 10/15/2019 03:00:00 PM [facility] Emergency Attender: JOSIANE MCCARTNEY 10/29/2018 01:53:00 PM [facility] - 10/29/2018 03:06:00 PM [facility] Emergency Attender: CYNHTIA MCCARTNEY EMERGENCY ROOM-ER 11/24/2014 10:40:00 PM EDT - 11/25/2014 12:14:00 AM [facility] Immunizations Vaccine Date Status Description Data Source(s) COVID-19 VACCINE Pfizer 12/09/2020 12:00:00 AM EDT completed [facility] Vaccine Series Complete: YESThis Data wa s Submitted to [facility] Via [employer]. COVID-19 VACCINE Pfizer 11/18/2020 12:00:00 AM EST completed [facility] Vaccine Series Complete: NOThis Data was Submitted to [facility] Via [employer]. Medications Medication Brand Name Start Date Product [...] A DAY FOR 5 DAYS SOLD: 10/27/2020 [facility] Prednisone 20 MG Oral Tablet Prednisone 09/03/2020 12:00:00 AM EST active MEDENT ([facility]) Doxycycline Monohydrate 100 MG Oral Capsule Doxycycline Campbell hydrate 08/09/2020 12:00:00 AM EST ORAL completed MEDENT ([facility]) 60 ACTUAT Albuterol 0.09 MG/ACTUAT Metered Dose Inhaler Albu terol Sulfate HFA 08/09/2020 12:00:00 AM EST RESPIRATORY completed MEDENT ([facility]) Prednisone 20 MG Oral Tablet Prednisone 08/09/2020 12:00:00 AM EST completed MEDENT ([facility]) risedronate sodium 35 MG Oral Tablet Risedronate Sodium 12:00:00 AM EDT active MEDENT ([facility]) 35 mg 06/26/2020 12:00:00 AM EDT tablet 4 TAKE 1 TABLET BY MOUTH AT LEAST 30 MINUTES BEFORE THE FIRST FOOD OR DRINK, OTHER THAN WATER, OF THE DAY ONCE WEEKLY TAKE 1 TABLET BY MOUTH AT LEAST 30 MINUT ES BEFORE THE FIRST FOOD OR DRINK, OTHER THAN WATER, OF THE DAY ONCE WEEKLY SOLD: 06/30/2020 [facility] Doxycycline Monohydrate 100 MG Oral Capsule Doxycycline Campbell hydrate 100 MG 06/25/2020 12:00:00 AM EDT 1.0 {capsule} active Doxycycline Monohydrate 100 MG eCW1 ([facility]) Doxycycline Monohydrate 100 MG Oral Capsule Doxycycline Campbell hydrate 100 MG 06/25/2020 12:00:00 AM EDT 1.0 {capsule} active Doxycycline Monohydrate 100 MG eCW1 ([facility]) Doxycycline Monohydrate 100 MG Oral Capsule Doxycycline Campbell hydrate 100 MG 06/25/2020 12:00:00 AM EDT 1.0 {capsule} active Doxycycline Monohydrate 100 MG eCW1 ([facility]) Doxycycline Monohydrate 100 MG Oral Capsule Doxycycline Campbell hydrate 100 MG 06/25/2020 12:00:00 AM EDT 1.0 {capsule} active Doxycycline Monohydrate 100 MG eCW1 ([facility]) 50 mg 05/11/2020 12:00:00 AM EDT tablet [...] type / Coverage type Policy ID Covered democrat ID Covered democrat's relationship to clemons Policy Clemons Plan Information EXCELLUS BCBS [id number] Spo GHP [id number] BCBS OD [place] 210/710 [id number] HU2 [id number] BCBS of [facility] Other 0 [id number] Family D ependent Thom Brittany 0 BCBS of [facility] Other 0 [id number] Family D ependent Thom Brittany 0 Excellus BCBS Medigap Part B [id number] Family Dependent [id number] EXCELLUS H [id number] Spouse [id number] POMCO U [id number] Self [id number] Blue Cross Blue Shield P [id number] SPOUSE [id number] POMCO U [id number] Self [id number] POMCO [id number] Karen [id number] [employer] Health Maintenance Organization (HMO) [id number] Self [id number] POMCO [id number] SP [id number] [employer] Maintenance [employer] (HMO) [id number] Self [id number] POMCO [id number] Karen [id number] [employer] F [id number] SELF [id number] [employer] / UMR F [id number] SELF [id number] [place] F [id number] SELF [id number] Blue Cross Blue Shield P [id number] SPOUSE [id number] [place] F [id number] SELF [id number] BCBS [place] 210/710 [id number] HU2 [id number] UMR F [id number] SELF [id number] BCBS EXCELLUS [id number] SPO UGD [id number] BCBS EXCELLUS [id number] SPO GHP [id number] BCBS EXCELLUS [id number] SPO UGD [id number] BCBS EXCELLUS [id number] SPO UGD [id number] BCBS OD [place] 210/710 [id number] HU2 [id number] [employer] [facility] Ppo Commercial [id number] Self [id number] [facility] [id number] SP [id number] BCBS Excellus Ppo U/W [facility] Part B [id number] Family Dependent G [id number] [facility] Commercial [id number] Self BCBS Excellus Ppo U/W Commercial [id number] Family Dependent BC/BS [place] Commercial [id number] Family Dependent BC/BS Of [place] [facility] Part B [id number] Family Dep endent [place] Commercial [id number] Self BCBS EXCELLUS [id number] SPO UGD [id number] BCBS OF [place] BC [id number] SPO [id number] BCBS of [facility] Other 0 [id number] Self 0 BCBS of [facility] Other 0 [id number] Self 0 SELF PAY ONLY [id number] SP [id number] [facility] [id number] BCBS EXCELLUS [id number] SPO GHP [id number] SELF PAY UNAVAILABLE S UNAVAILA BLE BCBS Excellus U/W Commercial [id number] Family Dependent [id number] R [facility] [id number] SP [id number] UMR O [id number] S [id number] EXCELLUS BCBS B [id number] S GHP [id number] BCBS OD [place] 210/710 [id number] SP [id number] BCBS EXCELLUS [id number] SPO GHP [id number] EXCELLUS BCBS PI PI POMCO PI PI [id number] BCBS EXCELLUS [id number] SPO GHP [id number] POMCO [id number] SP [id number] Problems, Conditions, and Diagnoses Code Display Name Description Problem Type Effective Dates Data Source(s) M85.80 Other specified disorders of bone density and structure, unspecified site OTH DISRD OF BONE DENSITY AND STRUCTURE, UNSPECIFI Diagnosis 06/25/2020 02:30:00 PM [facility] J01.00 Acute maxillary sinusitis, unspecified A CUTE MAXILLARY SINUSITIS, UNSPECIFIED Diagnosis 06/25/2020 02:30:00 PM [facility] [id number] Body mass index 30+ - obesity Body mass index 30+ - ob esity Problem 07/13/2020 12:00:00 AM EDT [facility] ([facility]) Surgeries/Procedures Procedure Description Date Indications Data Source(s) Intermediate Eye Exam Established Patient Intermediate Eye Exam Established Patient 12/17/2020 12:00:00 AM EDT PRASHANTH (Willy Koroma MD [facility]) Surgical / procedural history : Hysterec alicia- 1992, Appendectomy- 2004, Basal Cell Removed, right side of face 01/2019 Surgical / procedural history : Hysterectomy- 1992, Appendectomy- 2004, Basal Cell Removed, right side of face 01/201912/17/2020 12:00:00 AM EDT PRASHANTH (Willy Koroma MD [facility]) Intermediate Eye Exam Established Patient Intermediate Eye Exam Established Patient 12/17/2020 12:00:00 AM EDT PRASHANTH (Willy Koroma MD [facility]) Results ID Date Data Source [id number] 09/07/2020 12:00:00 AM EST [facility] Name Value Range Interpretation Code Description Data Ariella rce(s) Supporting Document(s) SARS-CoV-2 (COVID-19) RNA [Presence] in Respiratory specimen by RACHEL with probe detection [facility] This lab was ordered by [facility] and reported by [employer] ID Date Data Source [id number] 09/03/2020 12:00:00 AM EST [facility] Name Value Range Interpretation Code Description Data Ariella rce(s) Supporting Document(s) SARS coronavirus 2 Ag [facility] This lab was ordered by [facility] and reported by [facility]. Procedure Social History Code Duration Value Status Description Data Source(s ) Smoking 08/12/2021 03:09:41 PM EST Never smoked tobacco (findi ng) completed Never smoked tobacco (finding) PRASHANTH (Mason Koroma MD [facility]) Smoking 12/17/2020 08:30:09 AM EDT Never smoked tobacco (findi ng) completed Never smoked tobacco (finding) PRASHANTH (Mason Koroma MD [facility]) Smoking 09/03/2020 12:00:00 AM EST Patient has never smoked co mpleted Patient has never smoked MEDENT ([facility]) Smoking 06/25/2020 12:00:00 AM EDT Never Smoker completed Never S moker eCW1 ([facility]) Smoking 06/25/2020 12:00:00 AM EDT Never Smoker completed Never S moker eCW1 ([facility]) Smoking 06/25/2020 12:00:00 AM EDT Never Smoker completed Never S moker eCW1 ([facility]) Smoking 06/25/2020 12:00:00 AM EDT Never Smoker completed Never S moker eCW1 ([facility]) Vital Signs ID Date Data Source UNK Name Value Range Interpretation Code Description Data Source(s) Systolic blood pressure 120 mm[Hg] 120 mm[Hg] M EDENT ([facility]) Heart rate 73 /min 73 /min MEDENT ([facility], [facility]) Respiratory rate 18 /min 18 /min MEDENT ( [facility], [facility]) Oxygen saturation in Arterial blood by Pulse oximetry 95 % 95 % MEDENT ([facility], [facility]) Body temperature 98.6 [degF] 98.6 [degF] MEDENT ([facility], [facility]) Body weight 220.00 [lb_av] 220.00 [lb_av] MEDEN T ([facility], [facility]) Body height 67 [in_i] 67 [in_i] MEDENT ([facility], [facility]) 5'7" Body mass index (BMI) [Ratio] 34.5 kg/m2 34.5 k g/m2 MEDENT ([facility], [facility]) Diastolic blood pressure 86 mm[Hg] 86 mm[Hg] MEDENT ([facility], [facility]) Systolic blood pressure 126 mm[Hg] 126 mm[Hg] M EDENT ([facility], [facility]) Heart rate 83 /min 83 /min [facility] Respiratory rate 18 /min 18 /min MEDENT ( [facility], [facility]) Oxygen saturation in Arterial blood by Pulse oximetry 97 % 97 % MEDENT ([facility], [facility]) Body temperature 98.6 [degF] 98.6 [degF] MEDENT ([facility], [facility]) Body weight 220.00 [lb_av] 220.00 [lb_av] MEDEN T ([facility], [facility]) Body height 67 [in_i] 67 [in_i] MEDENT ([facility], [facility]) 5'7" Diastolic blood pressure 82 mm[Hg] 82 mm[Hg] MEDENT ([facility], [facility]) Body mass index (BMI) [Ratio] 34.5 kg/m2 34.5 k g/m2 MEDENT ([facility], [facility]) Body weight 219.00 [lb_av] 219.00 [lb_av] MEDEN T ([facility]) Body height 67 [in_i] 67 [in_i] MED[facility] 5'7" Body mass index (BMI) [Ratio] 34.3 kg/m2 34.3 k g/m2 MEDENT ([facility]) Systolic blood pressure--sitting 126 mm[Hg] 126 mm[Hg] MEDENT ([facility]) medium cuff, Ra Diastolic blood pressure--sitting 76 mm[Hg] 76 mm[Hg] MEDENT ([facility]) medium cuff, Ra Systolic blood pressure--supine 135 mm[Hg] 135 mm[Hg] MEDENT ([facility]) medium cuff, Ra Diastolic blood pressure--supine 82 mm[Hg] 82 mm[Hg] MEDENT ([facility]) medium cuff, Ra Body height 67.5 [in_i] 67.5 [in_i] eCW1 ([facility]) Body weight 223.8 [lb_av] 223.8 [lb_av] eCW1 ([facility]) Body mass index (BMI) [Ratio] 34.53 kg/m2 34.53 kg/m2 eCW1 ([facility]) Body temperature 99 [degF] 99 [degF] eCW1 ([facility]) Heart rate 91 /min 91 /min eCW1 ([facility]) Respiratory rate 17 /min 17 /min eCW1 ([facility]) Oxygen saturation in Arterial blood by Pulse oximetry 95 % 95 % eCW1 ([facility]) Patient Treatment Plan of Care Planned Activity Planned Date Details Description Data Source (s) Doxycycline Monohydrate 100 MG Oral Capsule 06/25/2020 12:00:00 AM EDT eCW1 ([facility]) Doxycycline Monohydrate 100 MG Oral Capsule 06/25/2020 12:00:00 AM EDT eCW1 ([facility]) Doxycycline Monohydrate 100 MG Oral Capsule 06/25/2020 12:00:00 AM EDT eCW1 ([facility]) Doxycycline Monohydrate 100 MG Oral Capsule 06/25/2020 12:00:00 AM EDT eCW1 ([facility])
[2021-08-24] MEDS ORDERED: LOSARTAN 50MG TABLET PO ONE (02:40)
[2021-08-24 03:30] LABS: RSV AMPLIFICATION NEGATIVE (NEGATIVE)
[2021-08-24] MEDS ORDERED: cefTRIAXone SOD 1 GM in D5W MINI-BAG PLUS 50 ML IV ONE (03:30)
[2021-08-24] MEDS: NS 1,000 ML IV SCH ×2 (04:23→14:52)
[2021-08-24] MEDS ORDERED: LOSA50TA88 PO (04:48)
[2021-08-24] MEDS ORDERED: MAGN400T2 PO (04:48)
[2021-08-24] MEDS ORDERED: OYST1TAB PO (04:48)
[2021-08-24] MEDS ORDERED: PROAAER10 INH (04:48)
[2021-08-24] MEDS ORDERED: D 50CAP3 PO (04:48)
[2021-08-24] MEDS ORDERED: VITMTA PO (04:48)
[2021-08-24] MEDS ORDERED: HOME MED LIST COMPLETE! XX SCH (04:50)
[2021-08-24] MEDS: HEPARIN SOD (PORCINE) 5000UNITS/ML 1ML VIAL/SYRINGE SC SCH ×4 (06:00→21:16)
[2021-08-24 08:24] LABS: HEMATOCRIT 39.7 % (36.0-47.0); HEMOGLOBIN 12.6 g/dl (12.0-15.5); MEAN CORPUSCULAR HGB CONC 31.7 g/dl (32.0-36.5); MEAN CORPUSCULAR VOLUME 91.5 fl (80.0-96.0); PLATELET COUNT, AUTOMATED 239 10^3/uL (150-450); RED BLOOD COUNT 4.34 10^6/uL (4.00-5.40); WHITE BLOOD COUNT 5.8 10^3/uL (4.0-10.0)
[2021-08-24 08:42] LABS: BLOOD UREA NITROGEN 16 MG/DL (7-18); CALCIUM LEVEL 8.7 MG/DL (8.8-10.2); CARBON DIOXIDE LEVEL 27 MEQ/L (21-32); CHLORIDE LEVEL 113 MEQ/L (98-107); CREATININE FOR GFR 0.87 MG/DL (0.55-1.30); GLOMERULAR FILTRATION RATE > 60.0 (>45); GLUCOSE, FASTING 96 MG/DL (70-100); SODIUM LEVEL 144 MEQ/L (136-145)
[2021-08-24] MEDS: OYSTER SHELL CALCIUM 500 MG TAB PO SCH (09:00)
[2021-08-24] MEDS: MAGNESIUM OXIDE 400MG TAB (MAG-OX) PO SCH (09:00)
[2021-08-24] MEDS: MULTIVITAMINS/MINERALS THERAP 1 TAB PO SCH (09:00)
[2021-08-24] MEDS ORDERED: ALBUTEROL 90 MCG/ACT 8GM HFA INHALER INH PRN (09:15)
[2021-08-24 14:30] VITALS: BP 145/79
--- NOTE | 2021-08-24 15:44 | IPNPDOC ---
Text Note Date of Service The patient was seen on 08/24/21. NOTE SUBJECTIVE: -No acute events overnight PHYSICAL EXAMINATION: Constitutional: Awake and alert, in no apparent distress ENT: Sclera are clear. Mucosa is moist. Respiratory: Lungs CTA bilaterally. No respiratory distress. No use of accessory muscles. Cardiovascular: Regular rate and rhythm no obvious murmurs. Chest pain is reproducible on the left chest wall on palpation at the costochondral area. Gastrointestinal: Abdomen is soft, non distended, non tender, BS present. Musculoskeletal: Dependent nonpitting lower extremity edema. RUE 5/5, LUE 5/5, BLE 5/5 Neurologic: No focal neurological deficit. Mental Status: A&O x3, normal affect Skin: No visible rashes LABORATORY DATA: See below. WBC 5.8 Hgb 12.6 platelets 239 na 144 K 4 Cr 0.87 UA was grossly positive, with pending UCx IMAGING: See chart MICROBIOLOGY: Please see below. ASSESSMENT/PLAN 65-year-old W who presented with vague complaints including reproducible chest pain found to have acute kidney injury and significantly elevated blood pressure admitted for observation for further medical management. # CARLINE: Resolved, was secondary to dehydration as she reports decreased fluid intake -Admitted for observation on telemetry. -s/p IVFs -Trend daily BMP. -Avoid nephrotoxins. # Chest pain: Initial high sensitivity troponin negative ACS ruled out. -noncardiac chest pain also from history pain is reproducible likely MSK. -EKG reviewed, non ischemic # Hypertensive urgency. -Continue home medications, losartan 50 QHS -may add amlodipine daily if still hypertensive this AM # DVT prophylaxis: Heparin VS,Fishbone, I+O VS, Fishbone, I+O Laboratory Tests 08/23/21 23:35 08/24/21 07:54 Vital Signs Date Time Temp Pulse Resp B/P (MAP) Pulse Ox O2 Delivery O2 Flow Rate FiO2 08/24/21 04:25 97.2 66 16 172/85 (114) 95 Room Air I&O- Last 24 Hours up to 6 AM 08/24/21 06:00 Intake Total 1000 ml Balance 1000 ml SANJAY MADDOX MD Aug 24, 2021 09:16
[2021-08-24] MEDS ORDERED: LOSARTAN 50MG TABLET PO SCH (21:00)
[2021-08-24 21:07] VITALS: BP_SYST 142; BP_SYST 146; BP_SYST 147; BP_DIAS 79; BP_DIAS 80; BP_DIAS 81
[2021-08-24 22:00] VITALS: BP 146/79
[2021-08-25] MEDS ORDERED: cefTRIAXone SOD 1 GM in D5W MINI-BAG PLUS 50 ML IV SCH (04:00)
[2021-08-25] MEDS: HEPARIN SOD (PORCINE) 5000UNITS/ML 1ML VIAL/SYRINGE SC SCH (05:06)
[2021-08-25 06:00] VITALS: BP 142/83
[2021-08-25] MEDS: MAGNESIUM OXIDE 400MG TAB (MAG-OX) PO SCH (09:00)
[2021-08-25] MEDS ORDERED: NITROFURANTOIN (MACROBID) 100 MG CAP PO SCH (09:00)
[2021-08-25] MEDS ORDERED: NITR100C2 PO (09:19)
[2021-08-25] MEDS ORDERED: AMLO1TAB25 PO (09:19)
--- NOTE | 2021-08-25 09:44 | DS.PDOC ---
Discharge Summary General Date of Admission Aug 24, 2021 at 02:14 Date of Discharge 08/25/2021 Attending Physician: SANJAY MADDOX MD Discharge Summary PROCEDURES PERFORMED DURING STAY: None ADMITTING DIAGNOSES: Hypertensive urgency CARLINE DISCHARGE DIAGNOSES: Hypertensive urgency CARLINE Dehydration GERD Obesity Musculoskeletal chest wall pain COMPLICATIONS/CHIEF COMPLAINT: Acute Kidney Injury. HISTORY OF PRESENT ILLNESS: 65-year-old W who presented due to a 2 day history of generalized malaise who on review of systems also reported having chest pain. Patient reported feeling somewhat weak and unwell for several days with labile blood pressure on her home but pressure monitor reading both low and high measurements. She also noted left-sided chest pain on the left side of her sternum that is reproducible on palpation and associated with lifting of her grand kids. Rest relieved the pain and lifting weights aggravated it. She felt that she might be dehydrated as she hadn't been drinking as much fluids as usual. She denied any diarrhea. She reported her acid reflux symptoms have been worse lately. Her symptoms were otherwise vague generally only identifying problems when probed. HOSPITAL COURSE: In the emergency department workup reveals patient has an CARLINE and persistent hypertensive urgency. She was hydrated with NS with resolution of the CARLINE, admission Head CT was negative for acute bleed and UA revealed a UTI and she was started on empiric ceftriaxone that was later switched to empiric macrobid that she will take to complete a 5d course. With regard to hypertensive urgency, it was persistent and I started her on amlodipine 10mg in addition to her losartan 50mg QHS with good effect. Given the recent reports of lability by the patient, I am urging strict daily BP measurement as she showed me her machine and logs at home and prompt PCP evaluation for continued optimization. I will also recommend that she holds the amlodipine if SBP is <120 on morning check pre med administration. DISCHARGE MEDICATIONS: Please see below. ALLERGIES: Please see below. PHYSICAL EXAMINATION ON DISCHARGE: VITAL SIGNS: Please see below. Constitutional: Awake and alert, in no apparent distress ENT: Sclera are clear. Mucosa is moist. Respiratory: Lungs CTA bilaterally. No respiratory distress. No use of accessory muscles. Cardiovascular: Regular rate and rhythm no obvious murmurs. Gastrointestinal: Abdomen is soft, non distended, non tender, BS present. Neurologic: No focal neurological deficit. Mental Status: A&O x3, normal affect Skin: No visible rashes LABORATORY DATA: Please see below. IMAGING: CT head: Brain: No intracranial mass, mass effect or midline shift. No acute intracranial hemorrhage. No CT evidence of acute cortical infarct. Ventricles, cisterns, and sulci are normal in size for age. Paranasal sinuses: Imaged paranasal sinuses are normally aerated. Mastoid air cells: Mastoid air cells and middle ear structures are normally aerated. Orbital cavity: Imaged orbits are unremarkable. Bones/joints: No calvarial fracture or destructive process. Soft tissues: No focal extracranial soft tissue swelling. IMPRESSION: No acute or concerning focal intracranial abnormality. PROGNOSIS: Good ACTIVITY: As tolerated DIET: 2g sodium DISCHARGE PLAN: Home with 4d of macrobid for UTI, added amlodipine 10mg daily to her losartan 50mg QHS. Prompt PCP follow up. DISPOSITION: Home DISCHARGE INSTRUCTIONS: Home with 4d of macrobid for UTI, added amlodipine 10mg daily to her losartan 50mg QHS. Prompt PCP follow up. ITEMS TO FOLLOWUP ON ON OUTPATIENT: HTN UTI DISCHARGE CONDITION: Stable TIME SPENT ON DISCHARGE: 36 minutes. Vital Signs/I&Os Vital Signs Date Time Temp Pulse Resp B/P (MAP) Pulse Ox O2 Delivery O2 Flow Rate FiO2 08/25/21 06:00 97.7 66 18 142/83 (102) 97 Room Air I&O- Last 24 Hours up to 6 AM 08/25/21 06:00 Intake Total 1940 ml Output Total 2900 ml Balance -960 ml Microbiology Microbiology 08/24/21 Urine Culture, Received Pending Discharge Medications Scheduled Amlodipine Besylate (Amlodipine Besylate) 10 Mg Tablet, 10 MG PO DAILY Calcium Carbonate (Calcium) 500 Mg Tablet, 500 MG PO DAILY, (Reported) Cholecalciferol (Vitamin D3) (Vitamin D3) 125 Mcg Capsule, 125 MCG PO DAILY, (Reported) Losartan Potassium (Losartan Potassium) 50 Mg Tablet, 50 MG PO QHS, (Reported) Magnesium Oxide (Magnesium Oxide) 400 Mg Tablet, 400 MG PO DAILY, (Reported) Multivitamins (Thera M Plus Tablet) 1 Each Tablet, 1 TAB PO DAILY, (Reported) Nitrofurantoin Monohyd/M-Cryst (Nitrofurantoin Yellow Medicine-Mcr 100 mg) 100 Mg Capsule, 100 MG PO BID Scheduled PRN Albuterol Sulfate (Proair Hfa) 8.5 Gm Hfa.aer.ad, 2 PUFF INH Q4H PRN for SHORTNESS OF BREATH, (Reported) Allergies Coded Allergies: Penicillins (Verified Allergy, Unknown, 08/24/21) procaine (Verified Allergy, Unknown, 08/24/21) SANJAY MADODX MD Aug 25, 2021 09:43
[2021-08-25 10:58] VITALS: BP 153/88
[2021-08-25] MEDS: OYSTER SHELL CALCIUM 500 MG TAB PO SCH (10:58)
[2021-08-25] MEDS: MULTIVITAMINS/MINERALS THERAP 1 TAB PO SCH (10:58)
--- NOTE | 2021-08-25 13:23 | ECGEPIP ---
[facility] - ED Test Date: 2021-08-23 Pat Name: EMORY PRIEST Department: Room: [facility] [place] Gender: Female Loss Prevention And Safety Manager: MINI : 1955 Requested By: NELSON Tovar Order Number: [id number] Reading MD: Mason Walker Measurements Intervals [place] Rate: 68 P: 45 [place]: 180 QRS: 10 QRSD: 84 T: 42 QT: 384 QTc: 408 Interpretive Statements Normal sinus rhythm Baseline artifact Comparison tracing not on file Electronically Signed on 08-25-2021 13:23:18 EST by Mason Walker
--- NOTE | 2021-08-29 16:56 | REP ---
INDICATION: CHEST PAIN COMPARISON: 02/21/2018 TECHNIQUE: Portable AP view of the chest FINDINGS: The mediastinum and cardiac silhouette are stable and within normal limits for portable technique. The lung [place] are clear without acute consolidation, effusion, or pneumothorax. Skeletal structures are intact. IMPRESSION: No acute cardiopulmonary process appreciated. <Electronically signed by Doe Kyle > 08/29/21 [id number]
== END 2021-08-25 14:50 | disposition home or self-care (01) ==
LOC: M ED 22:54 → M ED INP 22:55 → UNDOADMOB 08-24 02:14 → M ED INP 08-24 02:14 → ENRESERV 08-24 13:25 → M MSPAV 08-24 14:33 → M ED INP 08-24 14:33 → UNDODISOB 08-25 14:50
PROVIDERS: ADMIT Family Medicine; ATTEND Family Medicine
DX: N17.9 Acute kidney failure, unspecified (principal); I16.0 Hypertensive urgency; E86.0 Dehydration; K21.9 Gastro-esophageal reflux disease without esophagitis; E66.9 Obesity, unspecified; R07.89 Other chest pain; N39.0 Urinary tract infection, site not specified; R53.81 Other malaise; Z79.899 Other long term (current) drug therapy; Z88.0 Allergy status to penicillin; Z88.4 Allergy status to anesthetic agent; Z86.79 Personal history of other diseases of the circulatory system
CPT/HCPCS: 36415; 70450; 71045; 80048; 80076; 81001; 82550; 82553; 82570; 83690; 84300; 84439; 84443; 84484; 85025; 85027; 87088; 87186; 87631; 93005; 93041; 94760; 96361; 96365; 96366; 99285; J0696

== ENCOUNTER → 2021-09-08 | Outpatient (REF) | payer BC ==
[~2021-09-08] MED LIST: AMLO1TAB25 PO; D 50CAP3 PO; LOSA50TA88 PO; MAGN400T2 PO; NITR100C2 PO; OYST1TAB PO; PROAAER10 INH; VITMTA PO
[2021-09-08 16:16] LABS: BASO % 0.4 % (0.0-1.0); EOS # 0.1 10^3/uL (0.0-0.5); HEMATOCRIT 42.1 % (36.0-47.0); HEMOGLOBIN 13.6 g/dl (12.0-15.5); LYMPH # 1.4 10^3/uL (1.5-5.0); LYMPH % 28.3 % (24.0-44.0); MEAN CORPUSCULAR HEMOGLOBIN 29.6 pg (27.0-33.0); MEAN CORPUSCULAR HGB CONC 32.3 g/dl (32.0-36.5); MEAN CORPUSCULAR VOLUME 91.7 fl (80.0-96.0); MONO # 0.4 10^3/uL (0.0-0.8); MONO % 8.2 % (2.0-8.0); NEUTROPHILS # 3.1 10^3/uL (1.5-8.5); NEUTROPHILS % 60.9 % (36.0-66.0); PLATELET COUNT, AUTOMATED 224 10^3/uL (150-450); RED BLOOD COUNT 4.59 10^6/uL (4.00-5.40)
[2021-09-08 16:51] LABS: ALBUMIN 3.8 GM/DL (3.2-5.2); ALT/SGPT 36 U/L (12-78); BILIRUBIN,TOTAL 0.4 MG/DL (0.2-1.0); BLOOD UREA NITROGEN 19 MG/DL (7-18); CALCIUM LEVEL 9.9 MG/DL (8.8-10.2); CARBON DIOXIDE LEVEL 31 MEQ/L (21-32); CHLORIDE LEVEL 109 MEQ/L (98-107); CHOLESTEROL LEVEL 158 MG/DL (<200); CHOLESTEROL RISK RATIO 2.981 (<5); CREATININE FOR GFR 0.73 MG/DL (0.55-1.30); FREE T4 1.06 NG/DL (0.76-1.46); GLOMERULAR FILTRATION RATE > 60.0 (>45); GLUCOSE, FASTING 98 MG/DL (70-100); HDL CHOLESTEROL 53 MG/DL (>40); LDL CHOLESTEROL 80 MG/DL (<100); NON-HDL-C 105 MG/DL; POTASSIUM SERUM 4.5 MEQ/L (3.5-5.1); SODIUM LEVEL 142 MEQ/L (136-145); TOTAL PROTEIN 6.7 GM/DL (6.4-8.2); TRIGLYCERIDES LEVEL 123 MG/DL (<150)
[2021-09-08 17:56] LABS: HEMOGLOBIN A1c 5.6 %
== END ==
LOC: M SFHCCLAY 10:29
PROVIDERS: ATTEND Nurse Practitioner Family
DX: N17.9 Acute kidney failure, unspecified (principal); I10 Essential (primary) hypertension; N39.0 Urinary tract infection, site not specified; B95.2 Enterococcus as the cause of diseases classified elsewhere; R10.9 Unspecified abdominal pain; Z12.11 Encounter for screening for malignant neoplasm of colon; K22.10 Ulcer of esophagus without bleeding; G47.33 Obstructive sleep apnea (adult) (pediatric); Z13.1 Encounter for screening for diabetes mellitus

== ENCOUNTER → 2022-01-07 | Outpatient (CLI) | payer BC ==
[~2022-01-07] MED LIST changes: +LOSA50TA28 PO; -LOSA50TA88 PO
[2022-01-07 12:24] LABS: HEMOGLOBIN 14.2 g/dl (12.0-15.5); MEAN CORPUSCULAR HGB CONC 32.3 g/dl (32.0-36.5); MEAN CORPUSCULAR VOLUME 89.8 fl (80.0-96.0); PLATELET COUNT, AUTOMATED 241 10^3/uL (150-450); WHITE BLOOD COUNT 5.2 10^3/uL (4.0-10.0)
[2022-01-07 12:58] LABS: ALBUMIN 3.9 GM/DL (3.2-5.2); ALT/SGPT 47 U/L (12-78); BILIRUBIN,TOTAL 0.5 MG/DL (0.2-1.0); BLOOD UREA NITROGEN 13 MG/DL (7-18); CALCIUM LEVEL 9.8 MG/DL (8.8-10.2); CARBON DIOXIDE LEVEL 30 MEQ/L (21-32); CHLORIDE LEVEL 107 MEQ/L (98-107); CREATININE FOR GFR 0.76 MG/DL (0.55-1.30); GLOMERULAR FILTRATION RATE > 60.0 (>45); GLUCOSE, FASTING 93 MG/DL (70-100); NT-PRO BNP 46 PG/ML (<125); SODIUM LEVEL 141 MEQ/L (136-145)
== END ==
LOC: M LAB 11:24
PROVIDERS: ATTEND Physician Assistant
DX: R06.02 Shortness of breath (principal); R73.01 Impaired fasting glucose; Z83.49 Family history of other endocrine, nutritional and metabolic diseases

== ENCOUNTER → 2022-01-07 | Outpatient (CLI) | payer BC ==
[2022-01-07 12:43] LABS: HEMOGLOBIN A1c 5.4 %
[2022-01-07 12:47] LABS: ALT/SGPT 43 U/L (12-78); BILIRUBIN,TOTAL 0.5 MG/DL (0.2-1.0); BLOOD UREA NITROGEN 14 MG/DL (7-18); CALCIUM LEVEL 10.1 MG/DL (8.8-10.2); CARBON DIOXIDE LEVEL 30 MEQ/L (21-32); CHLORIDE LEVEL 108 MEQ/L (98-107); CREATININE FOR GFR 0.65 MG/DL (0.55-1.30); GLOMERULAR FILTRATION RATE > 60.0 (>45); GLUCOSE, FASTING 98 MG/DL (70-100); POTASSIUM SERUM 4.1 MEQ/L (3.5-5.1); SODIUM LEVEL 143 MEQ/L (136-145)
== END ==
LOC: M LAB 11:30
PROVIDERS: ATTEND Nurse Practitioner Family
DX: R73.01 Impaired fasting glucose (principal); Z83.49 Family history of other endocrine, nutritional and metabolic diseases

== ENCOUNTER → 2022-03-04 | Outpatient (REF) | payer BC ==
[2022-03-04 11:47] LABS: HEMOGLOBIN A1c 5.6 %
== END ==
LOC: M SFHCCLAY 08:45
PROVIDERS: ATTEND Family Medicine
DX: G44.52 New daily persistent headache (NDPH) (principal); R73.01 Impaired fasting glucose

== ENCOUNTER → 2022-03-31 | Outpatient (REF) | payer BC ==
[2022-03-31 20:38] LABS: ALBUMIN 3.7 GM/DL (3.2-5.2); ALT/SGPT 90 U/L (12-78); BILIRUBIN,TOTAL 0.3 MG/DL (0.2-1.0); BLOOD UREA NITROGEN 17 MG/DL (7-18); CARBON DIOXIDE LEVEL 26 MEQ/L (21-32); CHLORIDE LEVEL 109 MEQ/L (98-107); CREATININE FOR GFR 0.75 MG/DL (0.55-1.30); GLOMERULAR FILTRATION RATE > 60.0 (>45); GLUCOSE, FASTING 117 MG/DL (70-100); POTASSIUM SERUM 4.1 MEQ/L (3.5-5.1); SODIUM LEVEL 142 MEQ/L (136-145); TOTAL PROTEIN 6.7 GM/DL (6.4-8.2)
== END ==
LOC: M SFHCCLAY 14:42
PROVIDERS: ATTEND Family Medicine
DX: R73.01 Impaired fasting glucose (principal); Z83.49 Family history of other endocrine, nutritional and metabolic diseases; R42 Dizziness and giddiness; H92.02 Otalgia, left ear; Z20.9 Contact with and (suspected) exposure to unspecified communicable disease

== ENCOUNTER → 2022-06-17 | Outpatient (CLI) | payer BC ==
[2022-06-17 11:56] LABS: THYROID STIMULATING HORMONE 2.13 uIU/ML (0.358-3.740)
[2022-06-17 12:46] LABS: TOTAL 25(OH) VITAMIN D 65.4 NG/ML (30.0-100.0)
== END ==
LOC: M LAB 09:27
PROVIDERS: ATTEND Psychiatry & Neurology Neurology
DX: E53.8 Deficiency of other specified B group vitamins (principal); E51.9 Thiamine deficiency, unspecified; R42 Dizziness and giddiness

== ENCOUNTER → 2023-01-13 | Outpatient (REF) | payer MEDICARE, BC ==
[2023-01-13 11:46] LABS: BASO % 0.5 % (0.0-1.0); EOS # 0.1 10^3/uL (0.0-0.5); EOS % 2.1 % (0.0-3.0); HEMATOCRIT 42.8 % (36.0-47.0); HEMOGLOBIN 13.7 g/dl (12.0-15.5); LYMPH # 1.4 10^3/uL (1.5-5.0); LYMPH % 33.1 % (24.0-44.0); MEAN CORPUSCULAR HEMOGLOBIN 29.1 pg (27.0-33.0); MEAN CORPUSCULAR VOLUME 90.9 fl (80.0-96.0); MONO # 0.3 10^3/uL (0.0-0.8); MONO % 7.7 % (2.0-8.0); NEUTROPHILS # 2.4 10^3/uL (1.5-8.5); NEUTROPHILS % 56.4 % (36.0-66.0); PLATELET COUNT, AUTOMATED 228 10^3/uL (150-450); RED BLOOD COUNT 4.71 10^6/uL (4.00-5.40); WHITE BLOOD COUNT 4.3 10^3/uL (4.0-10.0)
[2023-01-13 12:04] LABS: ALBUMIN 3.7 G/DL (3.2-5.2); ALKALINE PHOSPHATASE 90 U/L (46-116); ALT/SGPT 30 U/L (7.0-40); AST/SGOT 17 U/L (<34); BILIRUBIN,TOTAL 0.6 MG/DL (0.3-1.2); BLOOD UREA NITROGEN 16 MG/DL (9-23); C REACTIVE PROTEIN QUANTITATIV < 0.40 MG/DL (<1.0); CALCIUM LEVEL 9.6 MG/DL (8.3-10.6); CARBON DIOXIDE LEVEL 27 MMOL/L (20-31); CHLORIDE LEVEL 107 MMOL/L (98-107); CHOLESTEROL LEVEL 165 MG/DL (<200); CHOLESTEROL RISK RATIO 3.32 (<5); CREATININE FOR GFR 0.73 MG/DL (0.55-1.30); GLOMERULAR FILTRATION RATE > 60.0 (>45); GLUCOSE, FASTING 90 MG/DL (74-106); HDL CHOLESTEROL 49.6 MG/DL (>40); LDL CHOLESTEROL 76.8 MG/DL (<100); NON-HDL-C 115.4 MG/DL; POTASSIUM SERUM 4.2 MMOL/L (3.5-5.1); SODIUM LEVEL 141 MMOL/L (136-145); TOTAL PROTEIN 6.3 G/DL (5.7-8.2); TRIGLYCERIDES LEVEL 193 MG/DL (<150)
[2023-01-13 12:07] LABS: FREE T4 1.08 NG/DL (0.89-1.76)
[2023-01-13 12:08] LABS: THYROID STIMULATING HORMONE 1.436 uIU/ML (0.55-4.78)
[2023-01-13 12:13] LABS: ERYTHROCYTE SEDIMENTATION RATE 6 mm/hr (0-30)
== END ==
LOC: M SFHCCLAY 09:15
PROVIDERS: ATTEND Family Medicine
DX: I10 Essential (primary) hypertension (principal); H81.12 Benign paroxysmal vertigo, left ear; K22.10 Ulcer of esophagus without bleeding; G44.59 Other complicated headache syndrome

== ENCOUNTER → 2023-05-30 | Outpatient (CLI) | payer MEDICARE | LOC: M RAD 04-27 13:11 | PROVIDERS: ATTEND Family Medicine | DX: R93.0 Abnormal findings on diagnostic imaging of skull and head, not elsewhere classified (principal) | CPT/HCPCS: 78306; A9503 ==

== ENCOUNTER → 2023-06-07 | Outpatient (CLI) | payer MEDICARE | LOC: M RAD 11:17 | PROVIDERS: ATTEND Family Medicine | DX: E04.1 Nontoxic single thyroid nodule (principal) ==

== ENCOUNTER → 2023-12-15 | Outpatient (CLI) | payer MEDICARE | LOC: M RAD 14:10 | PROVIDERS: ATTEND Family Medicine | DX: R91.1 Solitary pulmonary nodule (principal) ==

== ENCOUNTER → 2024-01-03 | Outpatient (CLI) | payer MEDICARE | LOC: M PLAIMG 10:52 | PROVIDERS: ATTEND Family Medicine | DX: R91.8 Other nonspecific abnormal finding of lung field (principal) ==

== ENCOUNTER → 2024-02-22 | Outpatient (CLI) | payer MEDICARE | LOC: M PLAIMG 10:02 | PROVIDERS: ATTEND Otolaryngology | DX: J30.89 Other allergic rhinitis (principal); H69.83 Other specified disorders of Eustachian tube, bilateral; R42 Dizziness and giddiness ==

== ENCOUNTER → 2024-04-03 | Outpatient (REF) | payer MEDICARE ==
[2024-04-03 19:00] LABS: APPEARANCE, URINE CLEAR (CLEAR); BACTERIA, URINE AUTO NEGATIVE (NEGATIVE); BILIRUBIN, URINE AUTO NEGATIVE (NEGATIVE); BLOOD, URINE BLOOD NEGATIVE (NEGATIVE); COLOR, URINE YELLOW (YELLOW); GLUCOSE, URINE (UA) AUTO NEGATIVE (NEGATIVE); KETONE, URINE AUTO 1+ mg/dL (NEGATIVE); LEUKOCYTE ESTERASE, URINE AUTO NEGATIVE (NEGATIVE); MUCUS, URINE SMALL (NEGATIVE); NITRITE, URINE AUTO NEGATIVE (NEGATIVE); PROTEIN, URINE AUTO NEGATIVE (NEGATIVE); RBC, URINE AUTO 1 /HPF (0-3); SQUAMOUS EPITHELIAL CELL UR AU 1 /HPF (0-6); UROBILINOGEN, URINE AUTO 0.2 mg/dL (0.0-2.0); WBC, URINE AUTO 0 /HPF (0-3)
== END ==
LOC: M SFHCCLAY 14:57
PROVIDERS: ATTEND Family Medicine
DX: R31.29 Other microscopic hematuria (principal)

== ENCOUNTER → 2024-04-08 | Outpatient (CLI) | payer MEDICARE | LOC: M CLY 21:02 | PROVIDERS: ATTEND Family Medicine | DX: Z53.9 Procedure and treatment not carried out, unspecified reason (principal) ==

== ENCOUNTER → 2024-04-25 | Outpatient (CLI) | payer MEDICARE | LOC: M CLY 14:27 | PROVIDERS: ATTEND Family Medicine | DX: M47.816 Spondylosis without myelopathy or radiculopathy, lumbar region (principal); M47.814 Spondylosis without myelopathy or radiculopathy, thoracic region; M25.551 Pain in right hip; M54.50 Low back pain, unspecified ==

== ENCOUNTER → 2024-05-08 | Outpatient (REF) | payer MEDICARE ==
[2024-05-08 11:25] LABS: BASO % 0.5 % (0.0-1.0); EOS # 0.1 10^3/uL (0.0-0.5); EOS % 1.6 % (0.0-3.0); HEMATOCRIT 43.3 % (36.0-47.0); HEMOGLOBIN 14.3 g/dl (12.0-15.5); LYMPH # 1.3 10^3/uL (1.5-5.0); LYMPH % 24.5 % (24.0-44.0); MEAN CORPUSCULAR HEMOGLOBIN 29.6 pg (27.0-33.0); MEAN CORPUSCULAR VOLUME 89.6 fl (80.0-96.0); MONO # 0.4 10^3/uL (0.0-0.8); MONO % 7.8 % (2.0-8.0); NEUTROPHILS # 3.6 10^3/uL (1.5-8.5); NEUTROPHILS % 65.2 % (36.0-66.0); PLATELET COUNT, AUTOMATED 217 10^3/uL (150-450); RED BLOOD COUNT 4.83 10^6/uL (4.00-5.40); WHITE BLOOD COUNT 5.5 10^3/uL (4.0-10.0)
[2024-05-08 11:27] LABS: BLOOD UREA NITROGEN 19 MG/DL (9-23); CALCIUM LEVEL 9.7 MG/DL (8.3-10.6); CARBON DIOXIDE LEVEL 28 MMOL/L (20-31); CHLORIDE LEVEL 111 MMOL/L (98-107); CREATININE FOR GFR 0.91 MG/DL (0.55-1.30); GLOMERULAR FILTRATION RATE > 60.0 (>45); GLUCOSE, FASTING 100 MG/DL (74-106); POTASSIUM SERUM 4.4 MMOL/L (3.5-5.1); SODIUM LEVEL 142 MMOL/L (136-145)
[2024-05-08 11:28] LABS: ALBUMIN 3.7 G/DL (3.2-5.2); ALKALINE PHOSPHATASE 104 U/L (46-116); ALT/SGPT 27 U/L (7.0-40); AST/SGOT 15 U/L (<34); BILIRUBIN,TOTAL 0.6 MG/DL (0.3-1.2); BLOOD UREA NITROGEN 19 MG/DL (9-23); CALCIUM LEVEL 9.9 MG/DL (8.3-10.6); CARBON DIOXIDE LEVEL 27 MMOL/L (20-31); CHLORIDE LEVEL 110 MMOL/L (98-107); CHOLESTEROL LEVEL 176 MG/DL (<200); CREATININE FOR GFR 0.92 MG/DL (0.55-1.30); GLOMERULAR FILTRATION RATE > 60.0 (>45); GLUCOSE, FASTING 99 MG/DL (74-106); HDL CHOLESTEROL 46.3 MG/DL (>40); LDL CHOLESTEROL 106.1 MG/DL (<100); NON-HDL-C 129.7 MG/DL; POTASSIUM SERUM 4.4 MMOL/L (3.5-5.1); SODIUM LEVEL 142 MMOL/L (136-145); TOTAL PROTEIN 6.6 G/DL (5.7-8.2); TRIGLYCERIDES LEVEL 118 MG/DL (<150)
[2024-05-08 11:30] LABS: FREE T4 1.19 NG/DL (0.89-1.76); THYROID STIMULATING HORMONE 1.335 uIU/ML (0.55-4.78)
[2024-05-08 11:47] LABS: HEMOGLOBIN A1c 5.5 % (4.0-6.0)
== END ==
LOC: M SFHCCLAY 08:39
PROVIDERS: ATTEND Family Medicine
DX: I10 Essential (primary) hypertension (principal); H81.12 Benign paroxysmal vertigo, left ear; K22.10 Ulcer of esophagus without bleeding; N17.9 Acute kidney failure, unspecified; N39.0 Urinary tract infection, site not specified; B95.2 Enterococcus as the cause of diseases classified elsewhere; R10.9 Unspecified abdominal pain; Z12.11 Encounter for screening for malignant neoplasm of colon; G47.33 Obstructive sleep apnea (adult) (pediatric); E04.1 Nontoxic single thyroid nodule; D49.519 Neoplasm of unspecified behavior of unspecified kidney; Z79.899 Other long term (current) drug therapy

== ENCOUNTER → 2024-05-10 | Outpatient (CLI) | payer MEDICARE ==
[~2024-05-10] MED LIST changes: +ISOVUE-370 76% 100ML VIAL As Ordered ONE
== END ==
LOC: M RAD 08:38
PROVIDERS: ATTEND Physician Assistant
DX: D49.519 Neoplasm of unspecified behavior of unspecified kidney (principal)
CPT/HCPCS: 74170; Q9967

== ENCOUNTER → 2024-09-30 | Outpatient (CLI) | payer MEDICARE ==
[~2024-09-30] MED LIST changes: -ISOVUE-370 76% 100ML VIAL As Ordered ONE
== END ==
LOC: M WUC 08:54
PROVIDERS: ATTEND Physician Assistant
DX: J22 Unspecified acute lower respiratory infection (principal)

== ENCOUNTER → 2024-10-31 | Outpatient (REF) | payer MEDICARE ==
[2024-10-31 19:07] LABS: BLOOD UREA NITROGEN 21 MG/DL (9-23); CALCIUM LEVEL 9.7 MG/DL (8.3-10.6); CARBON DIOXIDE LEVEL 29 MMOL/L (20-31); CHLORIDE LEVEL 106 MMOL/L (98-107); CREATININE FOR GFR 0.74 MG/DL (0.55-1.30); GLOMERULAR FILTRATION RATE > 60.0 (>45); GLUCOSE, FASTING 87 MG/DL (74-106); POTASSIUM SERUM 4.5 MMOL/L (3.5-5.1); SODIUM LEVEL 143 MMOL/L (136-145)
== END ==
LOC: M SFHCCLAY 13:17
PROVIDERS: ATTEND Physician Assistant
DX: N28.89 Other specified disorders of kidney and ureter (principal)

== ENCOUNTER → 2024-11-04 | Outpatient (CLI) | payer MEDICARE ==
[~2024-11-04] MED LIST changes: +ISOVUE-370 76% 100ML VIAL ONE
== END ==
LOC: M PLAIMG 13:39
PROVIDERS: ATTEND Physician Assistant
DX: N28.1 Cyst of kidney, acquired (principal); K57.30 Diverticulosis of large intestine without perforation or abscess without bleeding
CPT/HCPCS: 74170; Q9967

== ENCOUNTER → 2025-03-20 | Outpatient (CLI) | payer MEDICARE ==
[~2025-03-20] MED LIST changes: -ISOVUE-370 76% 100ML VIAL ONE
== END ==
LOC: M RAD 14:35
PROVIDERS: ATTEND Physician Assistant
DX: R91.8 Other nonspecific abnormal finding of lung field (principal); E04.2 Nontoxic multinodular goiter

== ENCOUNTER → 2025-04-05 | Outpatient (REF) | payer MEDICARE | LOC: M LAB REF 20:32 | PROVIDERS: ATTEND Physician Assistant | DX: R30.0 Dysuria (principal) ==

== ENCOUNTER → 2025-05-07 | Outpatient (CLI) | payer MEDICARE | LOC: M RAD 11:55 | PROVIDERS: ATTEND Physician Assistant | DX: R35.1 Nocturia (principal); N28.1 Cyst of kidney, acquired ==

== ENCOUNTER → 2025-08-05 | Outpatient (CLI) | payer MEDICARE ==
[2025-08-05 15:39] LABS: ALT/SGPT 22 U/L (7.0-40); AST/SGOT 16 U/L (<34); CALCIUM LEVEL 9.6 MG/DL (8.3-10.6); CARBON DIOXIDE LEVEL 30 MMOL/L (20-31); CHLORIDE LEVEL 106 MMOL/L (98-107); CHOLESTEROL LEVEL 166 MG/DL (<200); CHOLESTEROL RISK RATIO 2.99 (<5); CREATININE FOR GFR 0.73 MG/DL (0.55-1.30); GLOMERULAR FILTRATION RATE > 90.0 (>45); LDL CHOLESTEROL 88.1 MG/DL (<100); NON-HDL-C 110.5 MG/DL; POTASSIUM SERUM 4.0 MMOL/L (3.5-5.1); SODIUM LEVEL 141 MMOL/L (136-145); TRIGLYCERIDES LEVEL 112 MG/DL (<150)
[2025-08-05 15:50] LABS: ESTIMATED AVERAGE GLUCOSE 117.0 MG/DL (60-110)
== END ==
LOC: M PLALAB 12:40
PROVIDERS: ATTEND Physician Assistant
DX: I10 Essential (primary) hypertension (principal); Z11.8 Encounter for screening for other infectious and parasitic diseases; N28.89 Other specified disorders of kidney and ureter; K22.10 Ulcer of esophagus without bleeding; R91.1 Solitary pulmonary nodule; E04.2 Nontoxic multinodular goiter; G47.33 Obstructive sleep apnea (adult) (pediatric); Z91.030 Bee allergy status; Z79.899 Other long term (current) drug therapy

== ENCOUNTER → 2025-08-26 | Outpatient (REF) | payer MEDICARE ==
[~2025-08-26] MED LIST changes: +ESSETAB4 PO; +KETO-204 PO; +MACR100C43 PO; +OXYB5TAB14 PO; +PYRI1TAB5 PO; +ZINC100T3 PO
== END ==
LOC: M SMT 16:53
PROVIDERS: ATTEND Urology
DX: N20.0 Calculus of kidney (principal)

== ENCOUNTER 2025-08-28 06:54 | Day surgery (SDC) | payer MEDICARE ==
[2025-08-27 10:11] LABS: PLATELET COUNT, AUTOMATED 233 10^3/uL (150-450)
[2025-08-27 10:37] LABS: ALT/SGPT 17.0 U/L (7.0-40); AST/SGOT 13.0 U/L (<34); CALCIUM LEVEL 9.0 MG/DL (8.3-10.6); CARBON DIOXIDE LEVEL 29.0 MMOL/L (20-31); CHLORIDE LEVEL 107.0 MMOL/L (98-107); CREATININE FOR GFR 1.16 MG/DL (0.55-1.30); GLOMERULAR FILTRATION RATE 51.7 (>45); POTASSIUM SERUM 4.4 MMOL/L (3.5-5.1); SODIUM LEVEL 142.0 MMOL/L (136-145)
[~2025-08-28] VITALS: Ht 170.2 cm; Wt 94.8 kg
[~2025-08-28 06:54] MED LIST changes: -MACR100C43 PO; -OXYB5TAB14 PO; -PYRI1TAB5 PO
[2025-08-28] MEDS ORDERED: LR 1,000 ML IV SCH (07:10)
[2025-08-28] MEDS ORDERED: LIDOCAINE 2% 100 MG/5 ML SDV (FOR ANES.) As Ordered ONE (07:14)
[2025-08-28] MEDS ORDERED: MIDAZOLAM INJ 2 MG/2 ML VIAL As Ordered ONE (07:21)
[2025-08-28] MEDS ORDERED: dexAMETHasone 4 MG/ML 1 ML VIAL As Ordered ONE (07:22)
[2025-08-28] MEDS: ceFAZolin SODIUM 2 GM in DEXTROSE 5% (D5W) ADV/MINI-BAG 50 ML IV ONE (07:45)
[2025-08-28] MEDS ORDERED: ACETAMINOPHEN 1000MG/100ML IV BAG As Ordered ONE (07:58)
[2025-08-28] MEDS: ISOVUE-300 61% 100 ML VIAL As Ordered ONE (08:01)
[2025-08-28] MEDS ORDERED: ONDANSETRON 4MG/2ML VIAL As Ordered ONE (08:10)
[2025-08-28] MEDS ORDERED: KETOROLAC 30 MG/ML 1 ML VIAL As Ordered ONE (08:10)
[2025-08-28] MEDS ORDERED: MACR100C43 PO (08:38)
[2025-08-28] MEDS ORDERED: PYRI1TAB5 PO (08:38)
[2025-08-28] MEDS ORDERED: OXYB5TAB14 PO (08:38)
[2025-08-28 08:50] VITALS: BP 129/77; TEMP 98.4; O2SAT 95
== END 2025-08-28 09:11 | disposition home or self-care (01) ==
LOC: M SDC 06:54
PROVIDERS: ATTEND Urology
DX: N20.1 Calculus of ureter (principal); I10 Essential (primary) hypertension; G47.33 Obstructive sleep apnea (adult) (pediatric); Z79.899 Other long term (current) drug therapy; Z88.0 Allergy status to penicillin; Z88.4 Allergy status to anesthetic agent
CPT/HCPCS: 36415; 52332; 52351; 71046; 74018; 80053; 85027; 93005; C1769; C2617; J0131; J0688; J1100; J2250; J2405; J3010; Q9967

== ENCOUNTER → 2025-08-29 | Outpatient (REF) | payer MEDICARE ==
[~2025-08-29] MED LIST changes: +MACR100C43 PO; +OXYB5TAB14 PO; +PYRI1TAB5 PO
== END ==
LOC: M SMT 13:16
PROVIDERS: ATTEND Urology
DX: N20.0 Calculus of kidney (principal)

== ENCOUNTER → 2025-09-09 | Outpatient (REF) | payer MEDICARE | LOC: M SFHCCLAY 11:40 | PROVIDERS: ATTEND Physician Assistant | DX: R10.30 Lower abdominal pain, unspecified (principal) ==